=== PATIENT | male | born 1940 | race Caucasian/White ===

== ENCOUNTER 2017-03-23 08:39 | Day surgery (SDC) | payer MEDICARE, OTHER ==
--- NOTE | 2017-03-20 08:12 | HP ---
DATE OF SURGERY: 03/21/2017 ADMISSION DIAGNOSIS: The patient has difficulty swallowing. He is due for colonoscopic examination. He is also requiring a follow up re-evaluation bronchoscopy with a slightly worsening CT scan. ANTICIPATED PROCEDURES: Flexible bronchoscopy, EGD, colonoscopy. HISTORY OF PRESENT ILLNESS: The patient presents due for a colonoscopic examination for follow up. He has had some recent dysphagia, some hemoptysis which is presumed to be hemoptysis not necessarily hematemesis. He has a left upper lobe abnormality which has slightly worsened. He presents for follow up and evaluation of all three things at this time. PAST MEDICAL HISTORY: ALLERGIES: NKDA. MEDICATIONS: Lasix, Eliquis, baby aspirin, potassium, Bumex, carvedilol. PAST SURGICAL HISTORY: Rotator cuff. Endovascular aneurysm 2014. SOCIAL HISTORY: Negative. FAMILY HISTORY: Negative. PHYSICAL EXAMINATION: VITAL SIGNS: Normal. CHEST: Clear. COR: Regular. ABDOMEN: Satisfactory. IMPRESSION: Follow up screening colonoscopy, dysphagia requiring EGD, possible hematemesis/hemoptysis, CT abnormality left upper lobe. PLAN: EGD, bronchoscopy.
[~2017-03-23 08:39] MED LIST: ATROPINE SULFATE 1MG IV ONE; BRIDION 200MG/2ML IV ONE; DIPRIVAN 200 MG/20 ML IV ONE; Decadron 4 MG INJ IV ONE; Ephedrine Sulfate 50 MG/ML IV ONE; Lactated Ringers 1,000 ML IV ONE; Lactated Ringers 1,000 ML IV SCH; Quelicin Fliptop 200 MG/10 ML IV ONE; ROBINUL IV ONE; SUBLIMAZE 100 MCG/2 ML IV ONE; Zemuron 100 MG/10 ML IV ONE; Zofran 4 MG/2 ML VIAL IV ONE
[2017-03-23] MEDS ORDERED: Lactated Ringers 1,000 ML IV ONE (10:45)
[2017-03-23 12:06] VITALS: O2SAT 94
[2017-03-23 12:22] VITALS: BP 148/77; PULSE 61
--- NOTE | 2017-03-25 09:07 | OP ---
SURGERY DATE/TIME: 03/23/2017 PREOPERATIVE DIAGNOSIS: 1) Lesion left lung requiring follow up bronchoscopic examination with some mild symptoms. 2) Upper abdominal epigastric pain. 3) Screening colonoscopy follow up for 3 polyps. POSTOPERATIVE DIAGNOSIS: PROCEDURES: 1) Flexible bronchoscopic examinations with washings and biopsy. 2) EGD with cold biopsy. 3) Colonoscopic examination with hot polypectomy x3 complete to cecum. SURGEON: Misael Calderon M.D. ANESTHESIA: General. COMPLICATIONS: None. CONDITION: Stable. INDICATION: The patient has above mentioned reasons. DESCRIPTION OF PROCEDURE: He was taken to surgery. General anesthetic. The bronchoscopic examination was performed first. The adapter was placed on the endotracheal tube. The endotracheal tube was located 1.5 inches above the mian. There was a large blob of mucous in the left main on the posterior wall. Pre-biopsy suctioning from the left side were taken. Subsequently post-biopsy suctioning to the left side was taken. The right side was normal. The right upper lobe trifurcation, right middle lobe bifurcation, basilar segments were normal on the right. The mucous was tracked down the left main and it went to the posterior medial basilar. On the posterior wall there was exposed broncholith which had eroded through the posterior wall and it was fairly solid, very irregular and clearly a broncholith. Anterior there was a large amount of mucous and there was 1.5 cm long piece of material could be granulation tissue on the anterior surface. The other basilar were satisfactory. The upper lobe and lingula were satisfactory. Biopsy was taken and this basically took this whole piece of material about 1.5 cm long, 1.5 mm wide, very pink. It did have some texture to it. There was just a minimal amount of bleeding from its base. The field was irrigated. The bronchus was opened. Post-biopsy irrigation was performed and sent separately as post-biopsy washing. The gastroscope was then placed. A small hiatal hernia grade I/II gastroesophageal reflux disease. Receptionist biopsy of the antrum for Helicobacter pylori. Duodenal bulb and second portion satisfactory. The scope withdrawn. No additional lesions noted. Anal digital examination satisfactory. Scope introduced. The scope was fairly tedious. The patient had previous open prostatectomy. He had some fairly general robust nature, varying number of curves and angles. With care and patience the base of the cecum was reached. Ileocecal and appendiceal orifice was normal. Three polyps were taken on withdrawal all with hot biopsy forceps all with freight representative samples submitted. The patient tolerated the procedure satisfactory. Findings and pictures were initially shown to him.
--- NOTE | 2017-03-25 09:09 | OP ---
SURGERY DATE/TIME: 03/23/2017 1006 PREOPERATIVE DIAGNOSES: 1) Lesion left lung requiring follow up bronchoscopic examination with some mild symptoms. 2) Upper abdominal epigastric pain. 3) Screening colonoscopy follow up for 3 polyps. POSTOPERATIVE DIAGNOSES: 1) Lesion left lung requiring follow up bronchoscopic examination with some mild symptoms. 2) Upper abdominal epigastric pain. 3) Screening colonoscopy follow up for 3 polyps. PROCEDURES: 1) Flexible bronchoscopic examinations with washings and biopsy. 2) EGD with cold biopsy. 3) Colonoscopic examination with hot polypectomy x3 complete to cecum. SURGEON: Misael Calderon M.D. ANESTHESIA: General. COMPLICATIONS: None. CONDITION: Stable. INDICATION: The patient has above mentioned reasons. DESCRIPTION OF PROCEDURE: He was taken to surgery. General anesthetic. The bronchoscopic examination was performed first. The adapter was placed on the endotracheal tube. The endotracheal tube was located 1.5 inches above the mian. There was a large blob of mucous in the left main on the posterior wall. Pre-biopsy suctioning from the left side were taken. Subsequently post-biopsy suctioning to the left side was taken. The right side was normal. The right upper lobe trifurcation, right middle lobe bifurcation, basilar segments were normal on the right. The mucous was tracked down the left main and it went to the posterior medial basilar. On the posterior wall there was exposed broncholith which had eroded through the posterior wall and it was fairly solid, very irregular and clearly a broncholith. Anterior there was a large amount of mucous and there was 1.5 cm long piece of material could be granulation tissue on the anterior surface. The other basilar were satisfactory. The upper lobe and lingula were satisfactory. Biopsy was taken and this basically took this whole piece of material about 1.5 cm long, 1.5 mm wide, very pink. It did have some texture to it. There was just a minimal amount of bleeding from its base. The field was irrigated. The bronchus was opened. Post-biopsy irrigation was performed and sent separately as post-biopsy washing. The gastroscope was then placed. A small hiatal hernia grade I/II gastroesophageal reflux disease. Side Boss biopsy of the antrum for Helicobacter pylori. Duodenal bulb and second portion satisfactory. The scope withdrawn. No additional lesions noted. Anal digital examination satisfactory. Scope introduced. The scope was fairly tedious. The patient had previous open prostatectomy. He had some fairly general robust nature, varying number of curves and angles. With care and patience the base of the cecum was reached. Ileocecal and appendiceal orifice was normal. Three polyps were taken on withdrawal all with hot biopsy forceps all with entry level marketing representative samples submitted. The patient tolerated the procedure satisfactory. Findings and pictures were initially shown to him.
== END 2017-03-23 12:42 | disposition home or self-care (01) ==
LOC: SDC 08:39
PROVIDERS: ATTEND Surgery
PROC: 0B9L8ZX Drainage of Left Lung, Via Natural or Artificial Opening Endoscopic, Diagnostic (ICD-10-PCS; principal; 2017-03-23)
PROC: 0DB68ZX Excision of Stomach, Via Natural or Artificial Opening Endoscopic, Diagnostic (ICD-10-PCS; 2017-03-23)
PROC: 0DBM8ZX Excision of Descending Colon, Via Natural or Artificial Opening Endoscopic, Diagnostic (ICD-10-PCS; 2017-03-23)
PROC: 0DBL8ZX Excision of Transverse Colon, Via Natural or Artificial Opening Endoscopic, Diagnostic (ICD-10-PCS; 2017-03-23)
PROC: 0DBH8ZX Excision of Cecum, Via Natural or Artificial Opening Endoscopic, Diagnostic (ICD-10-PCS; 2017-03-23)
DX: R91.1 Solitary pulmonary nodule (principal); R10.13 Epigastric pain; Z12.11 Encounter for screening for malignant neoplasm of colon; R13.10 Dysphagia, unspecified; Z86.010 Personal history of colon polyps; K21.9 Gastro-esophageal reflux disease without esophagitis; Z79.899 Other long term (current) drug therapy
CPT/HCPCS: 00520; 00740; 00810; 36415; 87070; 99100; J0330; J0461; J1100; J2405; J2704; J3010

== ENCOUNTER 2020-11-14 09:30 | Emergency (ER) | payer MEDICARE, OTHER ==
--- NOTE | 2020-11-14 09:56 | ERPHSYRPT ---
- History of Present Illness Source: patient Patient Subjective Stated Complaint: Pt stated that he fell Saturday outside and injured his left shoulder and fell again outside on Saturday and injured his right shoulder Triage Nursing Assessment: Pt was brought to the ER by his , hx of left shoulder surgery, right shoulder more painful than left, hit head but denies losing consciousness, pt is on blood thinners, denies any other injuries, pulses normal, skin n/w/d Physician History: 80 yo wm fell on ice on 11/11/20 and 11/12/20 injuring B shoulders and hitting his head. He denies LOC but is on Eliquis. Pain is rated 2-3/10 in shoulders and worse w movement. He is R handed. Occurred: other (3 and 2 days ago) Reason for Fall: slipped (Ice) Injuries/Pain Location: upper extremity (B shoulders/Head) Loss of Consciousness: no loss of consciousness Quality: aching Severity of Pain-Max: mild Severity of Pain-Current: mild Modifying Factors: Improves With: movement (Worse w movement) Associated Symptoms (Fall): extremity injury, No abdominal pain, No back pain, No confusion, No chest pain, No dizziness, No headache, No lightheadedness, No muscle spasms, No nausea, No neck pain, No ringing in ears, No seizures, No shortness of breath, No slurred speech, No trouble walking, No vomiting, No vision changes Allergies/Adverse Reactions: No Known Drug Allergies Allergy (Verified 11/14/20 09:42) Home Medications: Nitroglycerin 0.4 mg SL UD PRN 09/17/12 [History] Rosuvastatin Calcium [Crestor] 20 mg PO DAILY 09/17/12 [History] Alprazolam 0.5 mg [xanAX 0.5 MG] 0.5 mg PO HS 01/13/13 [History] Temazepam [Restoril] 30 mg PO HS 01/13/13 [History] Bumetanide 1 mg [Bumex 1 mg] 1 mg PO DAILY PRN PRN 08/24/15 [History] Carvedilol 6.25 mg [Coreg 6.25 MG] 12.5 mg PO BID 08/24/15 [History] Albuterol 2.5 mg/3 ml Neb [Proventil 2.5 mg/3 ml Neb] 2.5 mg IH Q4-6HPRN PRN 03/20/17 [History] Apixaban [Eliquis] 5 mg PO BID 03/20/17 [History] Budesonide/Formoterol Fumarate [Symbicort 160-4.5 Mcg Inhaler] 6 gm IH DAILY 03/20/17 [History] Lisinopril 20 mg [Zestril 20 MG] 5 mg PO DAILY 03/20/17 [History] Potassium Chloride 20 Meq [Klor-Con 20 MEQ] 20 meq PO DAILY 03/20/17 [History] Amlodipine Besylate 5 mg [Norvasc 5 mg] 5 mg PO DAILY 11/14/20 [History] Isosorbide Mononitrate [Isosorbide Mononitrate ER] 60 mg PO DAILY 11/14/20 [History] Hx Influenza Vaccination/Date Given: Yes (2011) Hx Pneumococcal Vaccination/Date Given: Yes (2009) Travel Risk - International Travel Have you traveled outside of the country in past 3 weeks: No - Coronavirus Screening Are you exhibiting any of the following symptoms?: No Close contact with a COVID-19 positive Pt in past 14-21 Days: No - Review of Systems Constitutional: No Symptoms Eyes: No Symptoms Ears, Nose, & Throat: No Symptoms Respiratory: No Symptoms Cardiac: No Symptoms Abdominal/Gastrointestinal: No Symptoms Genitourinary Symptoms: No Symptoms Musculoskeletal: Joint Pain (B shoulders) Skin: No Symptoms Neurological: No Symptoms Psychological: No Symptoms Endocrine: No Symptoms Hematologic/Lymphatic: No Symptoms Immunological/Allergic: No Symptoms - Past Medical History Pertinent Past Medical History: Yes Neurological History: No Pertinent History ENT History: Cataracts Cardiac History: Aneurysm, Coronary Artery Disease, High Cholesterol, Hypertension Respiratory History: COPD, Emphysema, Sleep Apnea Endocrine Medical History: No Pertinent History Musculoskeletal History: No Pertinent History GI Medical History: Diverticulitis, Diverticulosis History: No Pertinent History Psycho-Social History: Anxiety Male Reproductive Disorders: Prostate Cancer Other Medical History: aortic aneurysm in November 2012, pacemaker - Past Surgical History Past Surgical History: Yes Neuro Surgical History: No Pertinent History Cardiac: CABG, Cardiac Catheterization, Cardiac Stent, Pacemaker Respiratory: No Pertinent History Gastrointestinal: Hernia Repair Genitourinary: No Pertinent History Musculoskeletal: Orthopedic Surgery Male Surgical History: Prostate Surgery, Vasectomy Other Surgical History: left shoulder reconstructioncyst from tail bone and neck, cyst removed from neck, colonoscopy - Social History Smoking Status: Former smoker How long have you smoked: 40yrs Exposure to second hand smoke: No Drug Use: none Patient Lives Alone: No - Nursing Vital Signs Nursing Vital Signs: Initial Vital Signs Temperature 97.5 F 11/14/20 09:34 Pulse Rate 60 11/14/20 09:34 Blood Pressure 169/81 11/14/20 09:34 O2 Sat by Pulse Oximetry 97 11/14/20 09:34 Pain Scale Pain Intensity 5 - Enrique Coma Score Best Eye Response ([place]): (4) open spontaneously Best Verbal Response ([place]): (5) oriented Best Motor Response (Enrique): (6) obeys commands Enrique Total: 15 - Physical Exam General Appearance: no apparent distress Head Injury: swelling (Possible small area of edema on occiput/Minimal TTP) ENT Exam: airway nml, decreased hearing, 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 ) Neck Exam: supple, trachea midline (C-spine nttp) Respiratory/Chest Exam: rales (Faint dry rales at bases B), No chest tenderness, No respiratory distress Cardiovascular Exam: regular rate/rhythm, murmur (3/6 NIECY) Gastrointestinal Exam: soft, normal bowel sounds, No tenderness Back Exam: normal inspection, normal range of motion, No CVA tenderness, No vertebral tenderness Extremity Exam: other (Diffuse TTP B shoulders/Pain w abduction of R shoulder>L shoulder/Good B radial pulse and distal sensation) Peripheral Pulses: carotid (R): 2+, carotid (L): 2+ Neurologic Exam: alert, oriented x 3, cooperative, 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, normal mood/affect, sensation nml, No motor deficits, No sensory deficit Skin Exam: normal color, warm, dry, No rash SpO2 Interpretation: normal SpO2: 97 O2 Delivery: Room Air - Radiology Exams Shoulder X-ray Interpretation: Reviewed by me (B shoulders neg per Rad) - CT Exams Head CT Interpretation: Discussed w/radiologist (Nothing acute/Opacification of L mastoid air cells) Ordered Tests: Active Orders 24 hr Category Date Time Status HEAD WITHOUT CONTRAST [CT] Stat Exams 11/14/20 09:53 Completed SHOULDER Routine Exams 11/14/20 10:04 Completed SHOULDER Stat Exams 11/14/20 09:57 Taken - Progress Progress Note: 11/14/20 11:17 Pt refuses any pain meds, even Rx Counseled pt/family regarding: rad results - Departure Departure Disposition: Home Clinical Impression: Shoulder contusion, Contusion of head Condition: Stable Critical Care Time: No Referrals: ABBEY MARS MD [Primary Care Provider] - Instructions: Minor Head Injury (DC), Shoulder Sprain (DC) Additional Instructions: Motrin/Tylenol for pain Follow up with your family MD Return to ER for increasing pain Activity as tolerated
--- NOTE | 2020-11-14 10:37 | XRAY ---
Indication: Pain following fall. Comparison: None 3 view left shoulder demonstrates osteopenia, mild shoulder degenerative arthropathy, and partially visualized pacemaker. No other bony, articular, or soft tissue abnormalities.
--- NOTE | 2020-11-14 11:05 | XRAY ---
Indication: Head injury following fall 2 days ago. Multiple contiguous axial images obtained through the head without contrast. Comparison: None. Age-appropriate global atrophy, mild periventricular degenerative micro-ischemia bilaterally, and small right external capsule lacunar infarct. No acute intracranial hemorrhage, abnormal extra-axial fluid collection, or mass effect. Fourth ventricle is midline without hydrocephalus. Bony calvarium intact. There are centimeter/subcentimeter right maxillary sinus polyps/retention cysts. Near complete opacification of left mastoid air cells presumed inflammatory. Impression: 1. Atrophy, degenerative micro-ischemia, and remote right external capsule lacunar infarct. 2. No acute intracranial abnormalities. 3. Opacification left mastoid air cells presumed inflammatory. 4. Incidental right maxillary sinus polyps/retention cysts.
[2020-11-14 11:12] VITALS: BP 143/72; PULSE 60
[2020-11-14 11:21] VITALS: O2SAT 97
--- NOTE | 2020-11-16 08:42 | XRAY ---
Indication: Pain following fall. Comparison: None 3 view right shoulder demonstrates osteopenia, mild AC degenerative arthropathy, and partially visualized cardiac pacer leads. No other bony, articular, or soft tissue abnormalities.
== END 2020-11-14 11:25 | disposition home or self-care (01) ==
LOC: ED 09:30
DX: M25.512 Pain in left shoulder (principal); M25.511 Pain in right shoulder; S00.93XA Contusion of unspecified part of head, initial encounter; S40.012A Contusion of left shoulder, initial encounter; S40.011A Contusion of right shoulder, initial encounter; R60.0 Localized edema; E78.5 Hyperlipidemia, unspecified; I10 Essential (primary) hypertension; I25.10 Atherosclerotic heart disease of native coronary artery without angina pectoris; W00.9XXA Unspecified fall due to ice and snow, initial encounter; Z79.01 Long term (current) use of anticoagulants
CPT/HCPCS: 70450; 73030; 99284

== ENCOUNTER 2021-06-12 06:09 | Observation (INO) | payer MEDICARE, OTHER ==
[2021-06-12] MEDS ORDERED: Zofran 4 MG/2 ML VIAL IV ONE ×2 (06:36→10:03)
[2021-06-12] MEDS ORDERED: MORPHINE SULFATE 2 MG INJ IV ONE ×2 (06:36→10:02)
[2021-06-12] MEDS ORDERED: Sodium Chloride 0.9% 500 ML 500 ML IV ONE ×2 (06:37→06:41)
[2021-06-12] MEDS ORDERED: MORPHINE SULFATE 2 MG INJ ONE (06:41)
[2021-06-12] MEDS ORDERED: Zofran 4 MG/2 ML VIAL ONE (06:41)
[2021-06-12 06:53] LABS: Absolute Neutrophil Ct (ANC) 5.87 (1.4-6.9); BASOPHIL % 0.3 % (0.0-0.4); Basophil (Absolute #) 0.02 (0-0.4); Eosinophil % 1.3 % (0.00-5.0); Hematocrit 37.8 % (42-50); Hemoglobin 11.9 gm/dl (12.5-18.0); Lymphocyte (Absolute #) 0.93 (1.0-4.6); Mean Corpuscular Hemoglobin 29.6 pg (26-32); Mean Corpuscular Hgb Concent. 31.5 g/dl (32-36); Mean Platelet Volume 10.8 fl (7.5-11.0); Monocyte (Absolute #) 0.86 (0.0-1.3); Monocytes % 11.1 % (0.0-12.0); Neutrophil % 75.3 % (36.0-66.0); Platelet Count 114 K/mm3 (150-450); Red Blood Count 4.02 M/mm3 (4.1-5.6); Red Cell Distribution Width 15.3 % (11.5-14.0); White Blood Count 7.8 K/mm3 (4.0-10.5)
--- NOTE | 2021-06-12 07:00 | ERPHSYRPT ---
<PERKAREN - Last Filed: 06/12/21 10:20> - History of Present Illness Historian: patient Exam Limitations: no limitations Patient Subjective Stated Complaint: pt states he has been having intermittent abd pain since saturday. states on saturday he was nauseated and vomnited. pain got better, and he woke up at approx 0400 with increased abd pain. Triage Nursing Assessment: pt alert and oreinted, answers questions approp. pt ambulatory with steady gait noted. respirations nonlabored. skin warm and dry. abd soft, tenderness noted to rt abd. bowel sounds hypo. Timing/Duration: day(s) (2), intermittent, gradual onset, worse Activities at Onset: sleep Quality: dullness, sharpness Abdominal Pain Onset Location: epigastric, periumbilical Pain Radiation: no radiation Severity of Pain-Max: moderate Severity of Pain-Current: moderate Modifying Factors: Improves With: rest. Worsens With: movement, palpation Associated Symptoms: nausea, vomiting, No chest pain, No fever/chills, No loss of appetite, No shortness of breath Previous symptoms: no prior history Hx Tetanus, Diphtheria Vaccination/Date Given: Yes Hx Influenza Vaccination/Date Given: No Hx Pneumococcal Vaccination/Date Given: Yes Immunizations Up to Date: Yes <ANTONINA BELLO - Last Filed: 06/15/21 07:55> - History of Present Illness Time Seen by Provider: 06/12/21 06:36 Physician History: 80 years old male with history of coronary artery disease status post CABG, on Eliquis, hypertension, hyperlipidemia presented in the ER with 2 days history of upper abdominal/periumbilical area intermittent moderate to severe intensity, sharp or dull nature with associated nausea and one episode of vomiting. Pain is aggravated with movements/activity and better with resting. Earlier he woke up with a severe pain and decided to come to ER. No vomiting today. Since no radiation of pain to the chest or any associated palpitations/shortness of breath. (ANTONINA BELLO) Allergies/Adverse Reactions: No Known Drug Allergies Allergy (Verified 06/12/21 06:28) Home Medications: Nitroglycerin 0.4 mg SL UD PRN 09/17/12 [History] Rosuvastatin Calcium [Crestor] 20 mg PO DAILY 09/17/12 [History] ALPRAZolam 0.5 MG [xanAX 0.5 MG] 0.5 mg PO HS 01/13/13 [History] Temazepam [Restoril] 30 mg PO HS 01/13/13 [History] Bumetanide 1 mg [Bumex 1 mg] 1 mg PO DAILY PRN PRN 08/24/15 [History] Carvedilol 6.25 mg [Coreg 6.25 MG] 12.5 mg PO BID 08/24/15 [History] Albuterol 2.5 mg/3 ml Neb [Proventil 2.5 mg/3 ml Neb] 2.5 mg IH Q4-6HPRN PRN 03/20/17 [History] Apixaban [Eliquis] 5 mg PO BID 03/20/17 [History] Budesonide/Formoterol Fumarate [Symbicort 160-4.5 Mcg Inhaler] 6 gm IH DAILY 03/20/17 [History] Lisinopril 20 mg [Zestril 20 MG] 5 mg PO DAILY 03/20/17 [History] Potassium Chloride 20 Meq [Klor-Con 20 MEQ] 20 meq PO DAILY PRN PRN 03/20/17 [History] Amiodarone HCl 200 mg [Cordarone 200 MG] 200 mg PO DAILY 06/12/21 [History] Amlodipine Besylate 5 mg [Norvasc 5 mg] 5 mg PO DAILY 06/12/21 [History] Isosorbide Mononitrate 60 mg [Imdur 60MG] 60 mg PO DAILY 06/12/21 [History] Travel Risk - International Travel Have you traveled outside of the country in past 3 weeks: No - Coronavirus Screening Are you exhibiting any of the following symptoms?: No Close contact with a COVID-19 positive Pt in past 14-21 Days: No - Vaccine Status Have you recieved a Covid-19 vaccination: No <ANTONINA BELLO - Last Filed: 06/15/21 07:55> - Review of Systems Constitutional: No Symptoms Eyes: No Symptoms Ears, Nose, & Throat: No Symptoms Respiratory: No Symptoms Cardiac: No Symptoms Abdominal/Gastrointestinal: Abdominal Pain, Nausea, Vomiting Genitourinary Symptoms: No Symptoms Musculoskeletal: No Symptoms Skin: No Symptoms Neurological: No Symptoms Psychological: No Symptoms Hematologic/Lymphatic: No Symptoms Immunological/Allergic: No Symptoms <ACEANTONINA Last Filed: 06/15/21 07:55> - Past Medical History Pertinent Past Medical History: Yes Neurological History: No Pertinent History ENT History: Cataracts Cardiac History: High Cholesterol, Hypertension, Myocardial Infarction ([place]) Respiratory History: COPD, Pneumonia, Other Endocrine Medical History: No Pertinent History Musculoskeletal History: No Pertinent History GI Medical History: Diverticulitis, Diverticulosis History: No Pertinent History Psycho-Social History: Anxiety Male Reproductive Disorders: Prostate Cancer Other Medical History: COVID-17 september 2020, , CABG (10-12 years) - Past Surgical History Past Surgical History: Yes Neuro Surgical History: No Pertinent History Cardiac: CABG, Cardiac Catheterization, Cardiac Stent, Pacemaker Respiratory: No Pertinent History Gastrointestinal: Hernia Repair Genitourinary: No Pertinent History Musculoskeletal: Orthopedic Surgery Male Surgical History: Prostate Surgery, Vasectomy Other Surgical History: left shoulder reconstructioncyst from tail bone and neck, cyst removed from neck, colonoscopy - Social History Smoking Status: Former smoker How long have you smoked: 40yrs Exposure to second hand smoke: No Drug Use: none Patient Lives Alone: No <ANTONINA BELLO Jacy Last Filed: 06/15/21 07:55> - Physical Exam General Appearance: no apparent distress, alert Eye Exam: PERRL/EOMI Ears, Nose, Throat Exam: normal ENT inspection, pharynx normal Neck Exam: normal inspection, non-tender, full range of motion Respiratory Exam: normal breath sounds, lungs clear Cardiovascular Exam: regular rate/rhythm, normal heart sounds Gastrointestinal/Abdomen Exam: soft, tenderness, guarding (Epigastric/periumbilical area with no rebound tenderness) Back Exam: normal inspection, normal range of motion Extremity Exam: normal inspection, normal range of motion Neurologic Exam: alert, oriented x 3, cooperative Skin Exam: normal color SpO2 Interpretation: normal SpO2: 99 O2 Delivery: Room Air <ACEANTONINA - Last Filed: 06/15/21 07:55> - Nursing Vital Signs Nursing Vital Signs: Initial Vital Signs Temperature 97.2 F 06/12/21 06:15 Pulse Rate 60 06/12/21 06:15 Respiratory Rate 16 06/12/21 06:15 Blood Pressure 168/83 06/12/21 06:15 O2 Sat by Pulse Oximetry 99 06/12/21 06:15 Pain Scale Pain Intensity 7 Ordered Tests: Medication Summary Discontinued Medications Generic Name Dose Route Start Last Admin Trade Name Freq PRN Reason Stop Dose Admin Hydrocodone Bitart/Acetaminophen 1 tab 06/12/21 19:00 06/12/21 20:30 [place] 5/325 Mg PO 06/17/21 18:59 1 tab Q4H PRN PRN Administration PAIN Albuterol Sulfate 2.5 mg 06/12/21 17:22 Proventil 2.5 Mg/3 Ml Neb IH 07/12/21 17:21 Q4H PRN PRN SHORTNESS OF BREATH Albuterol Sulfate 4 puff 06/12/21 17:38 06/12/21 17:45 Ventolin Common Canister IH 07/12/21 17:37 4 puff Q4H PRN PRN Administration SHORTNESS OF BREATH/WHEEZING Albuterol/Ipratropium 3 ml 06/12/21 15:36 Duoneb 0.5-3 Mg/3 Ml Neb IH 07/12/21 15:35 Q4HPRN PRN SHORTNESS OF BREATH/WHEEZING Alprazolam 0.5 mg 06/12/21 22:00 06/12/21 21:33 Xanax 0.5 Mg PO 07/12/21 21:59 0.5 mg HS SAMUEL Administration Amiodarone HCl 200 mg 06/12/21 18:00 06/13/21 11:39 Cordarone 200 Mg PO 07/12/21 17:59 200 mg DAILY SAMUEL Administration Amlodipine Besylate 5 mg 06/12/21 18:00 06/13/21 11:39 Norvasc 5 Mg PO 07/12/21 17:59 5 mg DAILY SAMUEL Administration Apixaban 5 mg 06/12/21 22:00 06/13/21 11:39 Eliquis 2.5 Mg Tablet PO 07/12/21 21:59 5 mg BID SAMUEL Administration Carvedilol 12.5 mg 06/12/21 22:00 06/13/21 11:39 Coreg 12.5 Mg PO 07/12/21 21:59 12.5 mg BID SAMUEL Administration Glycerin 1 supp.rect 06/13/21 11:21 06/13/21 11:39 Glycerin Adult Suppository RC 06/13/21 11:22 1 supp.rect STAT ONE Administration Sodium Chloride 500 mls @ 500 mls/hr 06/12/21 06:37 06/12/21 11:23 Sodium Chloride 0.9% 500 Ml IV 06/12/21 07:36 Infused .Q1H ONE Infusion Sodium Chloride Confirm 06/12/21 06:41 Sodium Chloride 0.9% 500 Ml Administered 06/12/21 06:42 Dose 500 mls @ ud IV .STK-MED ONE Piperacillin Sod/Tazobactam 100 mls @ 200 mls/hr 06/12/21 10:03 06/12/21 16:29 Sod 3.375 gm/ Sodium Chloride IV 06/12/21 10:32 Not Given STAT ONE Sodium Chloride 1,000 mls @ 100 mls/hr 06/12/21 10:30 06/12/21 23:18 Sodium Chloride 0.9% 1000 Ml IV 07/12/21 10:29 100 mls/hr .Q10H SAMUEL Administration Piperacillin Sod/Tazobactam 100 mls @ 200 mls/hr 06/12/21 18:00 06/13/21 11:38 Sod 3.375 gm/ Sodium Chloride IV 06/15/21 17:59 200 mls/hr Q6HT SAMUEL Administration Isosorbide Mononitrate 60 mg 06/12/21 18:00 06/13/21 11:39 Imdur 60mg PO 07/12/21 17:59 60 mg DAILY SAMUEL Administration Lisinopril 10 mg 06/13/21 10:00 Zestril 10 Mg PO 07/13/21 09:59 DAILY SAMUEL Lisinopril 5 mg 06/12/21 18:00 06/13/21 11:39 Zestril 5 Mg PO 07/12/21 17:59 5 mg DAILY SAMUEL Administration Morphine Sulfate 2 mg 06/12/21 06:36 06/12/21 06:44 Morphine Sulfate 2 Mg Inj IV 06/12/21 06:37 2 mg STAT ONE Administration Morphine Sulfate Confirm 06/12/21 06:41 Morphine Sulfate 2 Mg Inj Administered 06/12/21 06:42 Dose 2 mg .ROUTE .STK-MED ONE Morphine Sulfate 2 mg 06/12/21 10:02 06/12/21 16:28 Morphine Sulfate 2 Mg Inj IV 06/12/21 10:03 Not Given STAT ONE Morphine Sulfate 2 mg 06/12/21 10:21 Morphine Sulfate 2 Mg Inj IV 06/17/21 10:20 Q4H PRN PRN PAIN Morphine Sulfate 4 mg 06/12/21 15:31 06/12/21 16:18 Morphine Sulfate 2 Mg Inj IV 06/17/21 10:20 4 mg Q4H PRN PRN Administration PAIN Nitroglycerin 0.4 mg 06/12/21 17:22 Nitrostat 0.4 Mg Tablet SL 07/12/21 17:21 UD PRN CHEST PAIN Ondansetron HCl 4 mg 06/12/21 06:36 06/12/21 06:44 Zofran 4 Mg/2 Ml Vial IV 06/12/21 06:37 4 mg STAT ONE Administration Ondansetron HCl Confirm 06/12/21 06:41 Zofran 4 Mg/2 Ml Vial Administered 06/12/21 06:42 Dose 4 mg .ROUTE .STK-MED ONE Ondansetron HCl 4 mg 06/12/21 10:03 06/12/21 16:28 Zofran 4 Mg/2 Ml Vial IV 06/12/21 10:04 Not Given STAT ONE Ondansetron HCl 4 mg 06/12/21 10:21 06/12/21 16:27 Zofran 4 Mg/2 Ml Vial IV 07/12/21 10:20 4 mg Q6H PRN PRN Administration NAUSEA/VOMITING Pantoprazole Sodium 40 mg 06/12/21 15:00 06/13/21 11:39 Protonix 40 Mg Iv IV 07/12/21 14:59 40 mg Q24H10 SAMUEL Administration Fluticasone/Salmeterol 2 puff 06/12/21 19:00 06/13/21 07:41 Advair Hfa 115/21 Common Canister* IH 07/12/21 18:59 2 puff BIDRT SAMUEL Administration Simvastatin 40 mg 06/12/21 18:00 09/14/21 11:38 Zocor 20mg PO 07/12/21 17:59 40 mg DAILY SAMUEL Administration Temazepam 30 mg 06/12/21 22:00 06/12/21 21:33 Restoril 15 Mg PO 07/12/21 21:59 30 mg HS SAMUEL Administration Lab/Rad Data: Laboratory Result Diagrams 06/12/21 06:20 06/12/21 06:20 Laboratory Results 06/12/21 06/12/21 06/12/21 Range/Units 12:50 10:48 09:40 WBC (4.0-10.5) K/mm3 RBC (4.1-5.6) M/mm3 Hgb (12.5-18.0) gm/dl Hct (42-50) % MCV (78-100) fl MCH (26-32) pg MCHC (32-36) g/dl RDW (11.5-14.0) % Plt Count (150-450) K/mm3 MPV (7.5-11.0) fl Gran % (36.0-66.0) % Eos # (Auto) (0-0.5) Absolute Lymphs (auto) (1.0-4.6) Absolute Monos (auto) (0.0-1.3) Lymphocytes % (24.0-44.0) % Monocytes % (0.0-12.0) % Eosinophils % (0.00-5.0) % Basophils % (0.0-0.4) % Absolute Granulocytes (1.4-6.9) Basophils # (0-0.4) Sodium (137-145) mmol/L Potassium (3.5-5.1) mmol/L Chloride (98-107) mmol/L Carbon Dioxide (22-30) mmol/L Anion Gap (5-15) MEQ/L BUN (9-20) mg/dL Creatinine (0.66-1.25) mg/dL Estimated GFR ML/MIN Glucose (74-106) mg/dL Calcium (8.4-10.2) mg/dL Total Bilirubin (0.2-1.3) mg/dL AST (17-59) U/L ALT (0-50) U/L Alkaline Phosphatase (38-126) U/L Troponin I < 0.012 < 0.012 (0.000-0.034) ng/mL Serum Total Protein (6.3-8.2) g/dL Albumin (3.5-5.0) g/dL Amylase (30-110) U/L Lipase (23-300) U/L Urine Color (YELLOW) Urine Appearance (CLEAR) Urine pH (5-6) Ur Specific Brethren (1.005-1.025) Urine Protein (Negative) Urine Ketones (NEGATIVE) Urine Blood (0-5) Sheng/ul Urine Nitrite (NEGATIVE) Urine Bilirubin (NEGATIVE) Urine Urobilinogen (0-1) mg/dL Ur Leukocyte Esterase (NEGATIVE) Urine WBC (Auto) (0-5) /HPF Urine RBC (Auto) (0-2) /HPF U Hyaline Cast (Auto) (0-2) /LPF U Epithel Cells (Auto) (FEW) /HPF Urine Bacteria (Auto) (NEGATIVE) /HPF Urine Mucus (Auto) (NEGATIVE) /HPF Urine Culture Reflexed (NO) Urine Glucose (NEGATIVE) mg/dL SARS-CoV-2 (PCR) NEGATIVE (NEGATIVE) 06/12/21 06/12/21 06/12/21 Range/Units 08:26 06:45 06:20 WBC (4.0-10.5) K/mm3 RBC (4.1-5.6) M/mm3 Hgb (12.5-18.0) gm/dl Hct (42-50) % MCV (78-100) fl MCH (26-32) pg MCHC (32-36) g/dl RDW (11.5-14.0) % Plt Count (150-450) K/mm3 MPV (7.5-11.0) fl Gran % (36.0-66.0) % Eos # (Auto) (0-0.5) Absolute Lymphs (auto) (1.0-4.6) Absolute Monos (auto) (0.0-1.3) Lymphocytes % (24.0-44.0) % Monocytes % (0.0-12.0) % Eosinophils % (0.00-5.0) % Basophils % (0.0-0.4) % Absolute Granulocytes (1.4-6.9) Basophils # (0-0.4) Sodium 138 (137-145) mmol/L Potassium 3.5 (3.5-5.1) mmol/L Chloride 100 (98-107) mmol/L Carbon Dioxide 27 (22-30) mmol/L Anion Gap 14.4 (5-15) MEQ/L BUN 25 H (9-20) mg/dL Creatinine 1.15 (0.66-1.25) mg/dL Estimated GFR > 60.0 ML/MIN Glucose 117 H (74-106) mg/dL Calcium 9.0 (8.4-10.2) mg/dL Total Bilirubin 0.80 (0.2-1.3) mg/dL AST 28 (17-59) U/L ALT 19 (0-50) U/L Alkaline Phosphatase 65 (38-126) U/L Troponin I < 0.012 (0.000-0.034) ng/mL Serum Total Protein 7.3 (6.3-8.2) g/dL Albumin 4.2 (3.5-5.0) g/dL Amylase 92 (30-110) U/L Lipase 32 (23-300) U/L Urine Color YELLOW (YELLOW) Urine Appearance CLEAR (CLEAR) Urine pH 5.0 (5-6) Ur Specific [place] 1.031 (1.005-1.025) Urine Protein NEGATIVE (Negative) Urine Ketones NEGATIVE (NEGATIVE) Urine Blood NEGATIVE (0-5) Sheng/ul Urine Nitrite NEGATIVE (NEGATIVE) Urine Bilirubin NEGATIVE (NEGATIVE) Urine Urobilinogen 2 (0-1) mg/dL Ur Leukocyte Esterase NEGATIVE (NEGATIVE) Urine WBC (Auto) 0-2 (0-5) /HPF Urine RBC (Auto) 0-2 (0-2) /HPF U Hyaline Cast (Auto) 0-2 (0-2) /LPF U Epithel Cells (Auto) FEW (FEW) /HPF Urine Bacteria (Auto) FEW (NEGATIVE) /HPF Urine Mucus (Auto) SLIGHT (NEGATIVE) /HPF Urine Culture Reflexed NO (NO) Urine Glucose NEGATIVE (NEGATIVE) mg/dL SARS-CoV-2 (PCR) (NEGATIVE) 06/12/21 Range/Units 06:20 WBC 7.8 (4.0-10.5) K/mm3 RBC 4.02 L (4.1-5.6) M/mm3 Hgb 11.9 L (12.5-18.0) gm/dl Hct 37.8 L (42-50) % MCV 94.0 (78-100) fl MCH 29.6 (26-32) pg MCHC 31.5 L (32-36) g/dl RDW 15.3 H (11.5-14.0) % Plt Count 114 L (150-450) K/mm3 MPV 10.8 (7.5-11.0) fl Gran % 75.3 H (36.0-66.0) % Eos # (Auto) 0.10 (0-0.5) Absolute Lymphs (auto) 0.93 L (1.0-4.6) Absolute Monos (auto) 0.86 (0.0-1.3) Lymphocytes % 12.0 L (24.0-44.0) % Monocytes % 11.1 (0.0-12.0) % Eosinophils % 1.3 (0.00-5.0) % Basophils % 0.3 (0.0-0.4) % Absolute Granulocytes 5.87 (1.4-6.9) Basophils # 0.02 (0-0.4) Sodium (137-145) mmol/L Potassium (3.5-5.1) mmol/L Chloride (98-107) mmol/L Carbon Dioxide (22-30) mmol/L Anion Gap (5-15) MEQ/L BUN (9-20) mg/dL Creatinine (0.66-1.25) mg/dL Estimated GFR ML/MIN Glucose (74-106) mg/dL Calcium (8.4-10.2) mg/dL Total Bilirubin (0.2-1.3) mg/dL AST (17-59) U/L ALT (0-50) U/L Alkaline Phosphatase (38-126) U/L Troponin I (0.000-0.034) ng/mL Serum Total Protein (6.3-8.2) g/dL Albumin (3.5-5.0) g/dL Amylase (30-110) U/L Lipase (23-300) U/L Urine Color (YELLOW) Urine Appearance (CLEAR) Urine pH (5-6) Ur Specific [place] (1.005-1.025) Urine Protein (Negative) Urine Ketones (NEGATIVE) Urine Blood (0-5) Sheng/ul Urine Nitrite (NEGATIVE) Urine Bilirubin (NEGATIVE) Urine Urobilinogen (0-1) mg/dL Ur Leukocyte Esterase (NEGATIVE) Urine WBC (Auto) (0-5) /HPF Urine RBC (Auto) (0-2) /HPF U Hyaline Cast (Auto) (0-2) /LPF U Epithel Cells (Auto) (FEW) /HPF Urine Bacteria (Auto) (NEGATIVE) /HPF Urine Mucus (Auto) (NEGATIVE) /HPF Urine Culture Reflexed (NO) Urine Glucose (NEGATIVE) mg/dL SARS-CoV-2 (PCR) (NEGATIVE) - Progress Counseled pt/family regarding: lab results, diagnosis, need for follow-up, rad results <KAREN ALBARADO - Last Filed: 06/12/21 10:20> - Progress Progress: unchanged <ANTONINA BELLO - Last Filed: 06/15/21 07:55> - Progress Progress Note: 06/12/21 07:29 Assumed care of pt at shift change w epigastric pain x 2 days. Pain 3/10 and improved after MSO4. It is sharp and worse w movement. He has had N/V wo hematemesis/melena/hematochezia/dysuria/hematuria/fever/chest pain/cough/coryza. He is not vaccinated. Alert and oriented x3 Lungs-faint rales at bases B Heart RRR w2/6 NIECY Abdomen-good BS/soft/epigastric TTP wo guarding or rebound No edema 06/12/21 10:00 Spoke w Higinio Calderon MD, wants to admit to PCP, start Zosyn, and see pt on floor. 06/12/21 10:[address] Gomez (KAREN ALBARADO) 06/12/21 06:58 Work-up is pending, care is transferred to Dr. Albarado at shift change (ANTONINA BELLO) - Departure Departure Disposition: Observation <KAREN ALBARADO - Last Filed: 06/12/21 10:20> - Departure Critical Care Time: No <ANTONINA BELLO - Last Filed: 06/15/21 07:55> - Departure Clinical Impression: Biliary colic Condition: Good
[2021-06-12 07:03] LABS: ALBUMIN 4.2 g/dL (3.5-5.0); ALKALINE PHOSPHATASE 65 U/L (38-126); AMYLASE 92 U/L (30-110); ANION GAP 14.4 MEQ/L (5-15); BLOOD UREA NITROGEN 25 mg/dL (9-20); CHLORIDE 100 mmol/L (98-107); Carbon Dioxide 27 mmol/L (22-30); Creatinine 1 1.15 mg/dL (0.66-1.25); EST GLOMERULAR FILTRATION RATE > 60.0 ML/MIN; Glucose 117 mg/dL (74-106); LIPASE 32 U/L (23-300); Potassium 3.5 mmol/L (3.5-5.1); SGOT/AST 28 U/L (17-59); SGPT/ALT 19 U/L (0-50); SODIUM 138 mmol/L (137-145); Total Protein 7.3 g/dL (6.3-8.2)
--- NOTE | 2021-06-12 08:45 | XRAY ---
Indication: Upper abdomen pain. Multiple contiguous axial images obtained through the abdomen and pelvis using 100 cc Isovue 370 contrast. Comparison: February 09, 2020. Lung bases again demonstrates bibasilar fibrosis/scarring and minimal right posterior gutter calcified pleural plaquing. No infiltrate or effusion. Heart is not enlarged. Noncontrasted stomach and bowel loops remain nonobstructed again with scattered descending and sigmoid diverticulosis. Gallbladder demonstrates normally distended without gallstones. New gallbladder wall thickening up to 6-7 mm with tiny pericholecystic fluid concerning for cholecystitis. No abnormal biliary distention. Stable hepatic cysts, calcified splenic granulomas, and prostatectomy. Remaining liver, pancreas, spleen, adrenal glands, kidneys, ureters, and bladder are unremarkable. Stable scattered vascular calcifications, distal AAA, and aortobiiliac stent graft. Osseous structures intact again with osteopenia, mild/moderate multilevel degenerative spondylosis, and mild bilateral hip degenerative arthropathy. Impression: 1. New gallbladder wall thickening and tiny pericholecystic fluid without gallstones. Rule out acalculous cholecystitis. 2. Again incidental colonic diverticulosis, hepatic cysts, AAA with aortoiliac stent graft, and chronic bony findings.
[2021-06-12 08:58] LABS: Appearance CLEAR (CLEAR); Bilirubin NEGATIVE (NEGATIVE); Blood NEGATIVE Ery/ul (0-5); Glucose NEGATIVE (NEGATIVE); Hyaline Casts 0-2 /LPF (0-2); Ketones NEGATIVE (NEGATIVE); Leukocyte Esterase NEGATIVE (NEGATIVE); Mucus SLIGHT /HPF (NEGATIVE); Nitrite NEGATIVE (NEGATIVE); Protein,Urine Dip NEGATIVE (Negative); Specific Gravity 1.031 (1.005-1.025); Urobilinogen 2 mg/dL (0-1)
[2021-06-12 08:59] LABS: Bacteria FEW /HPF (NEGATIVE); Epithelial Cells FEW /HPF (FEW); RBC 0-2 /HPF (0-2); WBC 0-2 /HPF (0-5)
--- NOTE | 2021-06-12 09:43 | XRAY ---
Indication: Epigastric pain. Right upper quadrant abdominal sonogram demonstrates normally distended gallbladder wall thickening up to 3 mm. No gallstones or pericholecystic fluid. Common bile duct measures 3.7 mm. Visualized liver demonstrates a 2.2 cm left lobe cyst. No suspicious solid hepatic mass or ascites. Right kidney 10.8 cm in length and sonographically unremarkable. Pancreas not visualized. Impression: 1. Gallbladder wall thickening without gallstones or biliary distention. Rule out chronic cholecystitis. 2. Hepatic cyst. 3. Nonvisualization pancreas.
[2021-06-12] MEDS ORDERED: Zosyn 3.375 GM Vial 3.375 GM in Sodium Chloride 100ML MINI-BAG PLUS 100 ML IV ONE (10:03)
[2021-06-12] MEDS ORDERED: MORPHINE SULFATE 2 MG INJ IV PRN ×2 (10:21→15:31)
[2021-06-12] MEDS ORDERED: Zofran 4 MG/2 ML VIAL IV PRN (10:21)
--- NOTE | 2021-06-12 14:21 | XRAY ---
Indication: Right upper quadrant pain. Comparison: None Patient received 4.6 mCi technetium 99 Choletec. Immediate anterior planar imaging was performed for 90 minutes. Normal hepatic activity on the first image. Normal biliary and gallbladder activity within 30 minutes. Normal biliary to bowel activity within 50 minutes. Patient then ingested 8 ounces Ensure Plus. Ejection fraction calculated 33%, low. Normal range is greater than 35%. Impression: 1. HIDA scan portion examination is negative. 2. Low ejection fraction 33%. Rule out chronic cholecystitis.
--- NOTE | 2021-06-12 15:30 | PCM.HP ---
History of Present Illness - Chief Complaint Chief Complaint: Biliary colic History of Present Illness: is a 80 year old male who is well known to me, he has a history of CAD with stents, pacemaker in situ and copd, he reported to the ER early this morning with a 2 day history of cramping, severe epigastric abdominal pain with associated nausea and vomiting, he has no diarrhea, no change in bowel habits, no fever. Denies cough, no chest pain or shortness of breath. His pain waxes and wanes, currently not severe. - Review of Systems Constitutional: No Fever, No Chills Respiratory: No Cough, No Short Of Breath Cardiac: No Chest Pain, No Edema, No Syncope Abdominal/Gastrointestinal: Abdominal Pain, Nausea, Vomiting, No Diarrhea, No Constipation Genitourinary Symptoms: No Dysuria Skin: No Rash All Other Systems: Reviewed and Negative Medications & Allergies Home Medications: Home Medication List Nitroglycerin 0.4 mg SL UD PRN 09/17/12 [History Confirmed 06/12/21] Rosuvastatin Calcium [Crestor] 20 mg PO DAILY 09/17/12 [History Confirmed 05/31 12/18] ALPRAZolam 0.5 MG [xanAX 0.5 MG] 0.5 mg PO HS 01/13/13 [History Confirmed 06/12/21] Temazepam [Restoril] 30 mg PO HS 01/13/13 [History Confirmed 06/12/21] Bumetanide 1 mg [Bumex 1 mg] 1 mg PO DAILY PRN PRN 08/24/15 [History Confirmed 06/12/21] Carvedilol 6.25 mg [Coreg 6.25 MG] 12.5 mg PO BID 08/24/15 [History Confirmed 06/12/21] Albuterol 2.5 mg/3 ml Neb [Proventil 2.5 mg/3 ml Neb] 2.5 mg IH Q4-6HPRN PRN 03/20/17 [History Confirmed 06/12/21] Apixaban [Eliquis] 5 mg PO BID 03/20/17 [History Confirmed 06/12/21] Budesonide/Formoterol Fumarate [Symbicort 160-4.5 Mcg Inhaler] 6 gm IH DAILY 03/20/17 [History Confirmed 06/12/21] Lisinopril 20 mg [Zestril 20 MG] 5 mg PO DAILY 03/20/17 [History Confirmed 06/12/21] Potassium Chloride 20 Meq [Klor-Con 20 MEQ] 20 meq PO DAILY PRN PRN 03/20/17 [History Confirmed 06/12/21] Amlodipine Besylate 5 mg [Norvasc 5 mg] 5 mg PO DAILY 11/14/20 [History Confirmed 06/12/21] Allergies/Adverse Reactions: Allergies Allergy/AdvReac Type Severity Reaction Status Date / Time No Known Drug Allergies Allergy Verified 06/12/21 06:28 - Past Medical History Past Medical History: Yes Neurological History: No Pertinent History ENT History: Cataracts Cardiac History: High Cholesterol, Hypertension, Myocardial Infarction ([place]) Respiratory History: COPD, Pneumonia, Other Endocrine Medical History: No Pertinent History Musculoskelatal History: No Pertinent History GI Medical History: Diverticulitis, Diverticulosis History: No Pertinent History Pyscho-Social History: Anxiety Male Reproductive Disorders: Prostate Cancer Comment: COVID-17 september 2020, , CABG (10-12 years) - Past Surgical History Past Surgical History: Yes Neuro Surgical History: No Pertinent History Cardiac History: CABG, Cardiac Catheterization, Cardiac Stent, Pacemaker Respiratory Surgery: No Pertinent History GI Surgical History: Hernia Repair Genitourinary Surgical Hx: No Pertinent History Musculskeletal Surgical Hx: Orthopedic Surgery Male Surgical History: Prostate Surgery, Vasectomy Other Surgical History: left shoulder reconstructioncyst from tail bone and neck, cyst removed from neck, colonoscopy - Social History Smoking Status: Former smoker How long have you smoked: 40yrs Exposure to second hand smoke: No Alcohol: None Drug Use: none - Physical Exam Vital Signs: Vital Signs - 24 hr Temp Pulse Resp BP Pulse Ox 06/12/21 11:17 60 152/64 98 06/12/21 07:36 60 152/64 96 06/12/21 06:59 99 06/12/21 06:15 97.2 F 60 16 168/83 99 General Appearance: no apparent distress, alert Neurologic Exam: alert, oriented x 3, cooperative, normal mood/affect, nml cerebellar function, nml station & gait, sensation nml, No motor deficits Respiratory Exam: normal breath sounds, lungs clear, No respiratory distress Cardiovascular Exam: regular rate/rhythm, normal heart sounds, normal peripheral pulses Gastrointestinal/Abdomen Exam: tenderness (right upper and epigastrium, right lower abdomen.), No distention, No guarding, No rebound Extremity Exam: normal inspection, normal range of motion, pelvis stable Skin Exam: normal color, warm, dry, No rash Results - Labs Lab/Micro Results: Lab Results-Last 24 Hours 06/12/21 06/12/21 06/12/21 Range/Units 06:20 06:20 06:45 WBC 7.8 (4.0-10.5) K/mm3 RBC 4.02 L (4.1-5.6) M/mm3 Hgb 11.9 L (12.5-18.0) gm/dl Hct 37.8 L (42-50) % MCV 94.0 (78-100) fl MCH 29.6 (26-32) pg MCHC 31.5 L (32-36) g/dl RDW 15.3 H (11.5-14.0) % Plt Count 114 L (150-450) K/mm3 MPV 10.8 (7.5-11.0) fl Gran % 75.3 H (36.0-66.0) % Eos # (Auto) 0.10 (0-0.5) Absolute Lymphs (auto) 0.93 L (1.0-4.6) Absolute Monos (auto) 0.86 (0.0-1.3) Lymphocytes % 12.0 L (24.0-44.0) % Monocytes % 11.1 (0.0-12.0) % Eosinophils % 1.3 (0.00-5.0) % Basophils % 0.3 (0.0-0.4) % Absolute Granulocytes 5.87 (1.4-6.9) Basophils # 0.02 (0-0.4) Sodium 138 (137-145) mmol/L Potassium 3.5 (3.5-5.1) mmol/L Chloride 100 (98-107) mmol/L Carbon Dioxide 27 (22-30) mmol/L Anion Gap 14.4 (5-15) MEQ/L BUN 25 H (9-20) mg/dL Creatinine 1.15 (0.66-1.25) mg/dL Estimated GFR > 60.0 ML/MIN Glucose 117 H (74-106) mg/dL Calcium 9.0 (8.4-10.2) mg/dL Total Bilirubin 0.80 (0.2-1.3) mg/dL AST 28 (17-59) U/L ALT 19 (0-50) U/L Alkaline Phosphatase 65 (38-126) U/L Troponin I < 0.012 (0.000-0.034) ng/mL Serum Total Protein 7.3 (6.3-8.2) g/dL Albumin 4.2 (3.5-5.0) g/dL Amylase 92 (30-110) U/L Lipase 32 (23-300) U/L Urine Color (YELLOW) Urine Appearance (CLEAR) Urine pH (5-6) Ur Specific [place] (1.005-1.025) Urine Protein (Negative) Urine Ketones (NEGATIVE) Urine Blood (0-5) Sheng/ul Urine Nitrite (NEGATIVE) Urine Bilirubin (NEGATIVE) Urine Urobilinogen (0-1) mg/dL Ur Leukocyte Esterase (NEGATIVE) Urine WBC (Auto) (0-5) /HPF Urine RBC (Auto) (0-2) /HPF U Hyaline Cast (Auto) (0-2) /LPF U Epithel Cells (Auto) (FEW) /HPF Urine Bacteria (Auto) (NEGATIVE) /HPF Urine Mucus (Auto) (NEGATIVE) /HPF Urine Culture Reflexed (NO) Urine Glucose (NEGATIVE) mg/dL SARS-CoV-2 (PCR) (NEGATIVE) 06/12/21 06/12/21 06/12/21 Range/Units 08:26 09:40 10:48 WBC (4.0-10.5) K/mm3 RBC (4.1-5.6) M/mm3 Hgb (12.5-18.0) gm/dl Hct (42-50) % MCV (78-100) fl MCH (26-32) pg MCHC (32-36) g/dl RDW (11.5-14.0) % Plt Count (150-450) K/mm3 MPV (7.5-11.0) fl Gran % (36.0-66.0) % Eos # (Auto) (0-0.5) Absolute Lymphs (auto) (1.0-4.6) Absolute Monos (auto) (0.0-1.3) Lymphocytes % (24.0-44.0) % Monocytes % (0.0-12.0) % Eosinophils % (0.00-5.0) % Basophils % (0.0-0.4) % Absolute Granulocytes (1.4-6.9) Basophils # (0-0.4) Sodium (137-145) mmol/L Potassium (3.5-5.1) mmol/L Chloride (98-107) mmol/L Carbon Dioxide (22-30) mmol/L Anion Gap (5-15) MEQ/L BUN (9-20) mg/dL Creatinine (0.66-1.25) mg/dL Estimated GFR ML/MIN Glucose (74-106) mg/dL Calcium (8.4-10.2) mg/dL Total Bilirubin (0.2-1.3) mg/dL AST (17-59) U/L ALT (0-50) U/L Alkaline Phosphatase (38-126) U/L Troponin I < 0.012 (0.000-0.034) ng/mL Serum Total Protein (6.3-8.2) g/dL Albumin (3.5-5.0) g/dL Amylase (30-110) U/L Lipase (23-300) U/L Urine Color YELLOW (YELLOW) Urine Appearance CLEAR (CLEAR) Urine pH 5.0 (5-6) Ur Specific [place] 1.031 (1.005-1.025) Urine Protein NEGATIVE (Negative) Urine Ketones NEGATIVE (NEGATIVE) Urine Blood NEGATIVE (0-5) Sheng/ul Urine Nitrite NEGATIVE (NEGATIVE) Urine Bilirubin NEGATIVE (NEGATIVE) Urine Urobilinogen 2 (0-1) mg/dL Ur Leukocyte Esterase NEGATIVE (NEGATIVE) Urine WBC (Auto) 0-2 (0-5) /HPF Urine RBC (Auto) 0-2 (0-2) /HPF U Hyaline Cast (Auto) 0-2 (0-2) /LPF U Epithel Cells (Auto) FEW (FEW) /HPF Urine Bacteria (Auto) FEW (NEGATIVE) /HPF Urine Mucus (Auto) SLIGHT (NEGATIVE) /HPF Urine Culture Reflexed NO (NO) Urine Glucose NEGATIVE (NEGATIVE) mg/dL SARS-CoV-2 (PCR) NEGATIVE (NEGATIVE) 09/13/21 Range/Units 12:50 WBC (4.0-10.5) K/mm3 RBC (4.1-5.6) M/mm3 Hgb (12.5-18.0) gm/dl Hct (42-50) % MCV (78-100) fl MCH (26-32) pg MCHC (32-36) g/dl RDW (11.5-14.0) % Plt Count (150-450) K/mm3 MPV (7.5-11.0) fl Gran % (36.0-66.0) % Eos # (Auto) (0-0.5) Absolute Lymphs (auto) (1.0-4.6) Absolute Monos (auto) (0.0-1.3) Lymphocytes % (24.0-44.0) % Monocytes % (0.0-12.0) % Eosinophils % (0.00-5.0) % Basophils % (0.0-0.4) % Absolute Granulocytes (1.4-6.9) Basophils # (0-0.4) Sodium (137-145) mmol/L Potassium (3.5-5.1) mmol/L Chloride (98-107) mmol/L Carbon Dioxide (22-30) mmol/L Anion Gap (5-15) MEQ/L BUN (9-20) mg/dL Creatinine (0.66-1.25) mg/dL Estimated GFR ML/MIN Glucose (74-106) mg/dL Calcium (8.4-10.2) mg/dL Total Bilirubin (0.2-1.3) mg/dL AST (17-59) U/L ALT (0-50) U/L Alkaline Phosphatase (38-126) U/L Troponin I < 0.012 (0.000-0.034) ng/mL Serum Total Protein (6.3-8.2) g/dL Albumin (3.5-5.0) g/dL Amylase (30-110) U/L Lipase (23-300) U/L Urine Color (YELLOW) Urine Appearance (CLEAR) Urine pH (5-6) Ur Specific [place] (1.005-1.025) Urine Protein (Negative) Urine Ketones (NEGATIVE) Urine Blood (0-5) Sheng/ul Urine Nitrite (NEGATIVE) Urine Bilirubin (NEGATIVE) Urine Urobilinogen (0-1) mg/dL Ur Leukocyte Esterase (NEGATIVE) Urine WBC (Auto) (0-5) /HPF Urine RBC (Auto) (0-2) /HPF U Hyaline Cast (Auto) (0-2) /LPF U Epithel Cells (Auto) (FEW) /HPF Urine Bacteria (Auto) (NEGATIVE) /HPF Urine Mucus (Auto) (NEGATIVE) /HPF Urine Culture Reflexed (NO) Urine Glucose (NEGATIVE) mg/dL SARS-CoV-2 (PCR) (NEGATIVE) - Radiology Impressions Radiology Exams & Impressions: Radiology Procedures Category Date Time Status ABDOMEN AND PELVIS W CONTRAST [CT] Stat Exams 06/12/21 06:37 Completed ABDOMINAL-LIMITED [US] Stat Exams 06/12/21 08:58 Completed HIDA-GALL BLADDER [NUCMED] Stat Exams 06/12/21 10:31 Completed Assessment/Plan (1) Biliary colic Current Visit: Yes Status: Acute Assessment & Plan: keep npo, continue zosyn, fluids antiemetics and pain control. surgery consul spencer, HIDA with biliary dyskinesia/thick wall concerning for chronic cholecystitis, stymptomatology fits with biliary colic Code(s): K80.50 - CALCULUS OF BILE DUCT W/O CHOLANGITIS OR CHOLECYST W/O OBST (2) CAD (coronary artery disease) Current Visit: Yes Status: Acute Assessment & Plan: stable currently, no recent change in exercise tolerance. follows with [facility] from [facility] Dr [place] Code(s): I25.10 - ATHSCL HEART DISEASE OF [place] CORONARY ARTERY W/O ANG PCTRS (3) Atrial fibrillation Current Visit: Yes Status: Acute Assessment & Plan: hold eliquis pending possible surgical intervention, will resume when ok with surgery. Code(s): I48.91 - UNSPECIFIED ATRIAL FIBRILLATION
[2021-06-12] MEDS ORDERED: DUONEB 0.5-3 MG/3 ml Neb IH PRN (15:36)
[2021-06-12] MEDS: PROTONIX 40 MG IV IV SCH (16:18)
[2021-06-12] MEDS: Sodium Chloride 0.9% 1000 ML 1,000 ML IV SCH ×2 (16:19→23:18)
[2021-06-12] MEDS ORDERED: Nitrostat 0.4 MG Tablet SL PRN (17:22)
[2021-06-12] MEDS ORDERED: PROVENTIL 2.5 MG/3 ML NEB IH PRN (17:22)
[2021-06-12] MEDS ORDERED: VENTOLIN COMMON CANISTER IH PRN (17:38)
[2021-06-12] MEDS: Advair Hfa 115/21 Common canister IH SCH (17:45)
[2021-06-12] MEDS: Zosyn 3.375 GM Vial 3.375 GM in Sodium Chloride 100ML MINI-BAG PLUS 100 ML IV SCH ×2 (18:43→23:18)
[2021-06-12] MEDS: Imdur 60MG PO SCH (18:58)
[2021-06-12] MEDS: Zestril 5 MG PO SCH (18:58)
[2021-06-12] MEDS: ZOCOR 20MG PO SCH (18:58)
[2021-06-12] MEDS: NORVASC 5 MG PO SCH (18:58)
[2021-06-12] MEDS: Cordarone 200 MG PO SCH (18:58)
[2021-06-12] MEDS ORDERED: NORCO 5/325 MG PO PRN (19:00)
[2021-06-12] MEDS: ELIQUIS 2.5 MG TABLET PO SCH (21:33)
[2021-06-12] MEDS: COREG 12.5 MG PO SCH (21:34)
[2021-06-12] MEDS ORDERED: TEMAZEPAM 30 MG PO SCH (22:00)
[2021-06-12] MEDS ORDERED: Restoril 15 MG PO SCH (22:00)
[2021-06-12] MEDS ORDERED: xanAX 0.5 MG PO SCH (22:00)
[2021-06-12 23:45] VITALS: PULSE 60
[2021-06-13] MEDS: Zosyn 3.375 GM Vial 3.375 GM in Sodium Chloride 100ML MINI-BAG PLUS 100 ML IV SCH ×2 (05:09→11:38)
[2021-06-13 06:33] LABS: Absolute Neutrophil Ct (ANC) 3.68 (1.4-6.9); BASOPHIL % 0.4 % (0.0-0.4); Basophil (Absolute #) 0.02 (0-0.4); Eosinophil % 3.9 % (0.00-5.0); Hematocrit 35.9 % (42-50); Hemoglobin 11.1 gm/dl (12.5-18.0); Lymphocyte (Absolute #) 0.64 (1.0-4.6); Lymphocytes % 12.5 % (24.0-44.0); Mean Corpuscular Hemoglobin 29.4 pg (26-32); Mean Corpuscular Hgb Concent. 30.9 g/dl (32-36); Mean Platelet Volume 11.2 fl (7.5-11.0); Monocyte (Absolute #) 0.57 (0.0-1.3); Monocytes % 11.2 % (0.0-12.0); Platelet Count 102 K/mm3 (150-450); Red Blood Count 3.78 M/mm3 (4.1-5.6); Red Cell Distribution Width 15.2 % (11.5-14.0); White Blood Count 5.1 K/mm3 (4.0-10.5)
[2021-06-13 07:13] LABS: ALBUMIN 3.7 g/dL (3.5-5.0); ALKALINE PHOSPHATASE 56 U/L (38-126); ANION GAP 11.6 MEQ/L (5-15); BLOOD UREA NITROGEN 19 mg/dL (9-20); CHLORIDE 101 mmol/L (98-107); Calcium 8.8 mg/dL (8.4-10.2); Carbon Dioxide 28 mmol/L (22-30); Creatinine 1 0.97 mg/dL (0.66-1.25); EST GLOMERULAR FILTRATION RATE > 60.0 ML/MIN; Glucose 86 mg/dL (74-106); Potassium 3.9 mmol/L (3.5-5.1); SGOT/AST 26 U/L (17-59); SGPT/ALT 16 U/L (0-50); SODIUM 136 mmol/L (137-145); Total Protein 6.7 g/dL (6.3-8.2)
[2021-06-13] MEDS: Advair Hfa 115/21 Common canister IH SCH (07:41)
--- NOTE | 2021-06-13 08:56 | PCM.DS ---
Discharge Summary Date of Admission: 06/12/21 14:16 Admitting Physician: ABBEY MARS Consults: Consults on Case 06/12/21 10:21 Consult Surgery ROUTINE Primary Care Provider: ABBEY MARS Allergies Allergies No Known Drug Allergies Allergy (Verified 06/12/21 06:28) Hospital Summary - Hospital Course Hospital Course: Pt is 80 yo male pt of Dr[address] Mars with CAD with stents, pacemaker in situ, COPD, and afib who was admitted through ER with abd pain, dx with biliary colic. His WBC were normal. AST and ALT not elevated. Was made NPO, put on fluids and antiemetics and surgery consulted. Dr. Mckayla Calderon found pt to be nonsurgical at this time, thank you. He is eating this morning (liquid diet) and so far tolerating it well. He is denying abdominal pain except for when he pushes on the area, when it is 5/10. He last took a norco over 12 hours ago. If he tolerates his advanced diet today, will discharge to home on augmentin po and have him f/u with Dr. Mars in office in 1 week. F/u with surgery as directed by Dr. Mars. - Vitals & Intake/Output Vital Signs: Vital Signs Temperature 97.1 F 06/13/21 08:00 Pulse Rate 60 06/13/21 08:00 Respiratory Rate 14 06/13/21 08:00 Blood Pressure 162/70 06/13/21 08:00 O2 Sat by Pulse Oximetry 94 L 06/13/21 08:00 Intake & Output: Intake & Output 06/10/21 06/11/21 06/12/21 06/13/21 11:59 11:59 11:59 11:59 Intake Total 1812 Output Total 1100 Balance 712 Weight 105.506 kg 104.3 kg - Lab Result Diagrams: 06/13/21 04:26 06/13/21 04:26 Lab Results-Last 24 Hrs: Lab Results-Last 24 Hours 06/12/21 06/12/21 06/12/21 Range/Units 08:26 09:40 10:48 WBC (4.0-10.5) K/mm3 RBC (4.1-5.6) M/mm3 Hgb (12.5-18.0) gm/dl Hct (42-50) % MCV (78-100) fl MCH (26-32) pg MCHC (32-36) g/dl RDW (11.5-14.0) % Plt Count (150-450) K/mm3 MPV (7.5-11.0) fl Gran % (36.0-66.0) % Eos # (Auto) (0-0.5) Absolute Lymphs (auto) (1.0-4.6) Absolute Monos (auto) (0.0-1.3) Lymphocytes % (24.0-44.0) % Monocytes % (0.0-12.0) % Eosinophils % (0.00-5.0) % Basophils % (0.0-0.4) % Absolute Granulocytes (1.4-6.9) Basophils # (0-0.4) Sodium (137-145) mmol/L Potassium (3.5-5.1) mmol/L Chloride (98-107) mmol/L Carbon Dioxide (22-30) mmol/L Anion Gap (5-15) MEQ/L BUN (9-20) mg/dL Creatinine (0.66-1.25) mg/dL Estimated GFR ML/MIN Glucose (74-106) mg/dL Calcium (8.4-10.2) mg/dL Total Bilirubin (0.2-1.3) mg/dL AST (17-59) U/L ALT (0-50) U/L Alkaline Phosphatase (38-126) U/L Troponin I < 0.012 (0.000-0.034) ng/mL Serum Total Protein (6.3-8.2) g/dL Albumin (3.5-5.0) g/dL Urine Color YELLOW (YELLOW) Urine Appearance CLEAR (CLEAR) Urine pH 5.0 (5-6) Ur Specific [place] 1.031 (1.005-1.025) Urine Protein NEGATIVE (Negative) Urine Ketones NEGATIVE (NEGATIVE) Urine Blood NEGATIVE (0-5) Sheng/ul Urine Nitrite NEGATIVE (NEGATIVE) Urine Bilirubin NEGATIVE (NEGATIVE) Urine Urobilinogen 2 (0-1) mg/dL Ur Leukocyte Esterase NEGATIVE (NEGATIVE) Urine WBC (Auto) 0-2 (0-5) /HPF Urine RBC (Auto) 0-2 (0-2) /HPF U Hyaline Cast (Auto) 0-2 (0-2) /LPF U Epithel Cells (Auto) FEW (FEW) /HPF Urine Bacteria (Auto) FEW (NEGATIVE) /HPF Urine Mucus (Auto) SLIGHT (NEGATIVE) /HPF Urine Culture Reflexed NO (NO) Urine Glucose NEGATIVE (NEGATIVE) mg/dL SARS-CoV-2 (PCR) NEGATIVE (NEGATIVE) 06/12/21 06/12/21 06/13/21 Range/Units 12:50 16:20 04:26 WBC (4.0-10.5) K/mm3 RBC (4.1-5.6) M/mm3 Hgb (12.5-18.0) gm/dl Hct (42-50) % MCV (78-100) fl MCH (26-32) pg MCHC (32-36) g/dl RDW (11.5-14.0) % Plt Count (150-450) K/mm3 MPV (7.5-11.0) fl Gran % (36.0-66.0) % Eos # (Auto) (0-0.5) Absolute Lymphs (auto) (1.0-4.6) Absolute Monos (auto) (0.0-1.3) Lymphocytes % (24.0-44.0) % Monocytes % (0.0-12.0) % Eosinophils % (0.00-5.0) % Basophils % (0.0-0.4) % Absolute Granulocytes (1.4-6.9) Basophils # (0-0.4) Sodium (137-145) mmol/L Potassium (3.5-5.1) mmol/L Chloride (98-107) mmol/L Carbon Dioxide (22-30) mmol/L Anion Gap (5-15) MEQ/L BUN (9-20) mg/dL Creatinine (0.66-1.25) mg/dL Estimated GFR ML/MIN Glucose (74-106) mg/dL Calcium (8.4-10.2) mg/dL Total Bilirubin (0.2-1.3) mg/dL AST (17-59) U/L ALT (0-50) U/L Alkaline Phosphatase (38-126) U/L Troponin I < 0.012 < 0.012 < 0.012 (0.000-0.034) ng/mL Serum Total Protein (6.3-8.2) g/dL Albumin (3.5-5.0) g/dL Urine Color (YELLOW) Urine Appearance (CLEAR) Urine pH (5-6) Ur Specific [place] (1.005-1.025) Urine Protein (Negative) Urine Ketones (NEGATIVE) Urine Blood (0-5) Sheng/ul Urine Nitrite (NEGATIVE) Urine Bilirubin (NEGATIVE) Urine Urobilinogen (0-1) mg/dL Ur Leukocyte Esterase (NEGATIVE) Urine WBC (Auto) (0-5) /HPF Urine RBC (Auto) (0-2) /HPF U Hyaline Cast (Auto) (0-2) /LPF U Epithel Cells (Auto) (FEW) /HPF Urine Bacteria (Auto) (NEGATIVE) /HPF Urine Mucus (Auto) (NEGATIVE) /HPF Urine Culture Reflexed (NO) Urine Glucose (NEGATIVE) mg/dL SARS-CoV-2 (PCR) (NEGATIVE) 06/13/21 06/13/21 Range/Units 04:26 04:26 WBC 5.1 (4.0-10.5) K/mm3 RBC 3.78 L (4.1-5.6) M/mm3 Hgb 11.1 L (12.5-18.0) gm/dl Hct 35.9 L (42-50) % MCV 95.0 (78-100) fl MCH 29.4 (26-32) pg MCHC 30.9 L (32-36) g/dl RDW 15.2 H (11.5-14.0) % Plt Count 102 L (150-450) K/mm3 MPV 11.2 H (7.5-11.0) fl Gran % 72.0 H (36.0-66.0) % Eos # (Auto) 0.20 (0-0.5) Absolute Lymphs (auto) 0.64 L (1.0-4.6) Absolute Monos (auto) 0.57 (0.0-1.3) Lymphocytes % 12.5 L (24.0-44.0) % Monocytes % 11.2 (0.0-12.0) % Eosinophils % 3.9 (0.00-5.0) % Basophils % 0.4 (0.0-0.4) % Absolute Granulocytes 3.68 (1.4-6.9) Basophils # 0.02 (0-0.4) Sodium 136 L (137-145) mmol/L Potassium 3.9 (3.5-5.1) mmol/L Chloride 101 (98-107) mmol/L Carbon Dioxide 28 (22-30) mmol/L Anion Gap 11.6 (5-15) MEQ/L BUN 19 (9-20) mg/dL Creatinine 0.97 (0.66-1.25) mg/dL Estimated GFR > 60.0 ML/MIN Glucose 86 (74-106) mg/dL Calcium 8.8 (8.4-10.2) mg/dL Total Bilirubin 0.90 (0.2-1.3) mg/dL AST 26 (17-59) U/L ALT 16 (0-50) U/L Alkaline Phosphatase 56 (38-126) U/L Troponin I (0.000-0.034) ng/mL Serum Total Protein 6.7 (6.3-8.2) g/dL Albumin 3.7 (3.5-5.0) g/dL Urine Color (YELLOW) Urine Appearance (CLEAR) Urine pH (5-6) Ur Specific [place] (1.005-1.025) Urine Protein (Negative) Urine Ketones (NEGATIVE) Urine Blood (0-5) Sheng/ul Urine Nitrite (NEGATIVE) Urine Bilirubin (NEGATIVE) Urine Urobilinogen (0-1) mg/dL Ur Leukocyte Esterase (NEGATIVE) Urine WBC (Auto) (0-5) /HPF Urine RBC (Auto) (0-2) /HPF U Hyaline Cast (Auto) (0-2) /LPF U Epithel Cells (Auto) (FEW) /HPF Urine Bacteria (Auto) (NEGATIVE) /HPF Urine Mucus (Auto) (NEGATIVE) /HPF Urine Culture Reflexed (NO) Urine Glucose (NEGATIVE) mg/dL SARS-CoV-2 (PCR) (NEGATIVE) - Radiology Exams Ordered Rad Exams-Entire Visit: Radiology Procedures Category Date Time Status ABDOMEN AND PELVIS W CONTRAST [CT] Stat Exams 06/12/21 06:37 Completed ABDOMINAL-LIMITED [US] Stat Exams 06/12/21 08:58 Completed HIDA-GALL BLADDER [NUCMED] Stat Exams 06/12/21 10:31 Completed - Procedures and Test Procedures and Tests throughout Hospitalization: Therapy Orders & Screens 06/12/21 18:17 Respiratory Therapy Assessment DAILY Comment: Diagnosis: Biliary colic Discharge Exam General Appearance: no apparent distress, alert, obese Neurologic Exam: oriented x 3, cooperative, normal mood/affect Eye Exam: eyes nml inspection Ears, Nose, Throat Exam: moist mucous membranes Neck Exam: normal inspection Respiratory Exam: normal breath sounds, lungs clear, No crackles/rales, No rhonchi, No wheezing Cardiovascular Exam: regular rate/rhythm, normal heart sounds, No murmur Gastrointestinal/Abdomen Exam: soft, normal bowel sounds, tenderness (RUQ, RLQ), No mass, No guarding, No rebound Back Exam: normal inspection, No rash Extremity Exam: normal inspection, No pedal edema, No swelling Skin Exam: normal color, warm, dry, No rash Final Diagnosis/Problem List - Final Discharge Diagnosis/Problem (1) Biliary colic Current Visit: Yes Status: Resolved Assessment & Plan: Pain is gone aside from when he puts pressure on the abdomen. Adv diet as tolerated today, and if no vomiting or return of pain will discharge to home later today on po augmentin x 8d (to finish 10d total antibiotic). F/u with Dr. Mars next week and surgery as directed by Dr. Mars. Code(s): K80.50 - CALCULUS OF BILE DUCT W/O CHOLANGITIS OR CHOLECYST W/O OBST (2) Atrial fibrillation Current Visit: Yes Status: Chronic Code(s): I48.91 - UNSPECIFIED ATRIAL FIBRILLATION (3) CAD (coronary artery disease) Current Visit: Yes Status: Chronic Code(s): I25.10 - ATHSCL HEART DISEASE OF [place] CORONARY ARTERY W/O ANG PCTRS (4) COPD (chronic obstructive pulmonary disease) Current Visit: Yes Status: Chronic - Discharge Disposition: Home, Self-Care Condition: Good Prescriptions: New Lactobacillus Acidophilus [Acidophilus TABLET] 1 tab PO BID #16 tablet Amox Tr/Potass Clav. 875 mg [Augmentin 875-125 Tablet] 875 mg PO BID #16 tablet Continue Rosuvastatin Calcium [Crestor] 20 mg PO DAILY Nitroglycerin 0.4 mg SL UD PRN PRN Reason: Chest Pain Temazepam [Restoril] 30 mg PO HS ALPRAZolam 0.5 MG [xanAX 0.5 MG] 0.5 mg PO HS Carvedilol 6.25 mg [Coreg 6.25 MG] 12.5 mg PO BID Bumetanide 1 mg [Bumex 1 mg] 1 mg PO DAILY PRN PRN PRN Reason: edema Albuterol 2.5 mg/3 ml Neb [Proventil 2.5 mg/3 ml Neb] 2.5 mg IH Q4- 6HPRN PRN PRN Reason: Shortness Of Breath Potassium Chloride 20 Meq [Klor-Con 20 MEQ] 20 meq PO DAILY PRN PRN PRN Reason: w/ water pill Budesonide/Formoterol Fumarate [Symbicort 160-4.5 Mcg Inhaler] 6 gm IH DAILY Apixaban [Eliquis] 5 mg PO BID Lisinopril 20 mg [Zestril 20 MG] 5 mg PO DAILY Amiodarone HCl 200 mg [Cordarone 200 MG] 200 mg PO DAILY Amlodipine Besylate 5 mg [Norvasc 5 mg] 5 mg PO DAILY Isosorbide Mononitrate 60 mg [Imdur 60MG] 60 mg PO DAILY Follow up with: ABBEY MARS MD [Primary Care Provider] -
[2021-06-13] MEDS ORDERED: NON-FORMULARY ITEM (Rosuvastatin Calcium [Crestor] 20 MG) PO SCH (10:00)
[2021-06-13] MEDS ORDERED: Zestril 10 MG PO SCH (10:00)
[2021-06-13] MEDS ORDERED: GLYCERIN ADULT SUPPOSITORY RC ONE (11:21)
[2021-06-13] MEDS: ZOCOR 20MG PO SCH (11:38)
[2021-06-13] MEDS: ELIQUIS 2.5 MG TABLET PO SCH (11:39)
[2021-06-13] MEDS: Zestril 5 MG PO SCH (11:39)
[2021-06-13] MEDS: NORVASC 5 MG PO SCH (11:39)
[2021-06-13] MEDS: PROTONIX 40 MG IV IV SCH (11:39)
[2021-06-13] MEDS: Imdur 60MG PO SCH (11:39)
[2021-06-13] MEDS: Cordarone 200 MG PO SCH (11:39)
[2021-06-13] MEDS: COREG 12.5 MG PO SCH (11:39)
--- NOTE | 2021-06-13 13:06 | CONS ---
DATE: 06/12/2021 HISTORY: This is an 80-year-old gentleman who started having pain in his epigastric region on Saturday. He said it was worse when he moved around. He is having more pain on his right upper, right middle and slightly right lower abdomen as well as radiating to his right lateral abdomen. He has also had a decreased appetite. He said that Saturday which was two days at about 1500 hours, he ate at a restaurant. He did not eat the same food as everyone else. He ate coleslaw and a fish sandwich. After that he started having vomiting. He did not have any diarrhea. No one else got sick. No one else is sick yet, either. He said he was doubled over with the vomiting. He tried to go to congregational on Saturday and initially was okay but then he started hurting again. He ate small dinner and then this morning on, Saturday at 0400 hours, he woke up with worse pain. He is not having nausea or vomiting now. He has never had epigastric or right upper quadrant pain in the distant past. He is currently not having any diarrhea either. His last bowel movement was normal and it was Saturday. He has no shortness of breath, no chest pain, no blood in his stool. No hematuria. No fever. No other symptoms. He was seen at bedside initially by himself in the [facility] scan [facility] and again with his in his hospital bed room. PAST MEDICAL/SURGICAL HISTORY: Includes prostate cancer surgery, bypass surgery, hernia repair, shoulder surgery. He states that he has never had stomach ulcers before. The patient does report that he did have a stent graft. It looks like he has a lower midline incision as well as inguinal incision. Abdominal aortic stent graft. MEDICATIONS: His medications are reviewed. He does take Eliquis. ALLERGIES: NKDA. SOCIAL HISTORY: No tobacco. No alcohol use. FAMILY HISTORY: Brother with lung cancer. PHYSICAL EXAMINATION: Vital signs are all stable. He is afebrile. He is not tachycardic. GENERAL: No acute distress. Alert, oriented x3. CVS: Regular rate and rhythm. PULMONARY: Nonlabored respirations. Sitting up in bed without issue. ABDOMEN: Soft, moderately tender along the right upper, right middle, slightly towards the right lower quadrant. Very minimally tender towards the far most right lateral abdomen. No significant posterior right flank pain. EXTREMITIES: Normal. LAB DATA AND TESTS: Labs: White blood cell count 7.8, hemoglobin 11.9, PLT count 114,000. Creatinine 1.15, bilirubin 0.8, ALT 19, AST 28. Amylase and lipase are normal. His UA did not show any significant sign of infection, no blood. COVID test is negative. Creatinine 1.15. Imaging studies: Right upper quadrant ultrasound showed common bile duct 3.7, wall is approximately [address] scan was negative except for a thickened gallbladder wall with some possible fluid around it. HIDA scan was 33%. ASSESSMENT AND PLAN: This is an 80-year-old who had nausea and vomiting which has resolved and now has abdominal pain. All of his labs, imaging studies and his clinical status have been reviewed. At this time, he is nontoxic. He does have a benign exam. He is moderately tender. It is hard to say what has exactly caused his pain. He does not have a classic cholecystitis even though his gallbladder looked somewhat thickened on the CT scan. His ultrasound does not really agree with this and the wall is much thinner on the ultrasound. The patient also does not have any gallstones and he had a HIDA scan and his gallbladder does appear to be working slightly below normal level but it is still working quite well considering 33%. Also, the patient's white blood cell count is normal. His amylase, lipase, bilirubin, liver function tests are all normal as well. At this time, it is hard to say what his exact source of pain is. My suspicion is he could also have something related to his stomach with all of the vomiting that he had and the pain starting after he was vomiting. He does not look like he has anything perforated because his white count is normal. He is completely nontoxic and this has been going on for a couple of days. I also have some suspicion he could even have a mild ischemic colitis with his very slightly elevated creatinine and that he could have been dehydrated from the vomiting but his colon does not appear to be thickened on his CT scan so this may be mild. At this time, I discussed with him and his . We are going to continue to try to figure out what has caused his abdominal pain. We are going to give him some IV fluids, rehydrate him, re-evaluate his abdomen tomorrow, let him have a small amount of liquids and see how he does. He has had endoscopies in the past with Dr. Misael Calderon and I will discuss the case with him as well.
[2021-06-13 17:49] VITALS: BP 101/51
[2021-06-15 07:55] VITALS: O2SAT 99
== END 2021-06-13 14:32 | disposition home or self-care (01) ==
LOC: ED 06:09 → MED SURG 14:16
PROVIDERS: ADMIT Family Medicine; ATTEND Family Medicine
DX: K80.50 Calculus of bile duct without cholangitis or cholecystitis without obstruction (principal); R11.2 Nausea with vomiting, unspecified; J44.9 Chronic obstructive pulmonary disease, unspecified; I25.10 Atherosclerotic heart disease of native coronary artery without angina pectoris; I48.91 Unspecified atrial fibrillation; Z79.01 Long term (current) use of anticoagulants; Z79.899 Other long term (current) drug therapy; Z95.0 Presence of cardiac pacemaker; I10 Essential (primary) hypertension; E78.00 Pure hypercholesterolemia, unspecified; Z20.822 Contact with and (suspected) exposure to COVID-19
CPT/HCPCS: 36415; 74177; 76705; 78226; 80053; 81001; 82150; 83690; 84484; 85025; 93005; 94640; 94760; 96374; 96375; 99285; A9537; G0378; U0003; J2270; J2405; A9270-GY

== ENCOUNTER 2021-08-25 09:41 | Day surgery (SDC) | payer MEDICARE, OTHER ==
[2021-08-25] MEDS ORDERED: Lactated Ringers 1,000 ML IV ONE (10:02)
[2021-08-25] MEDS ORDERED: Versed 2 MG/2 ML Injection ONE (10:25)
[2021-08-25] MEDS ORDERED: DIPRIVAN 200 MG/20 ML IV ONE ×2 (10:25→10:59)
[2021-08-25] MEDS ORDERED: SUBLIMAZE 100 MCG/2 ML ONE (10:25)
[2021-08-25] MEDS ORDERED: Lactated Ringers 1,000 ML IV SCH (10:30)
[2021-08-25] MEDS ORDERED: KEFZOL 1 GM ONE (10:48)
[2021-08-25] MEDS ORDERED: Sensorcaine 0.25% 10 ML ONE ×2 (10:55→11:05)
[2021-08-25 12:46] VITALS: PULSE 60
[2021-08-25 12:55] VITALS: BP 172/80; O2SAT 96
--- NOTE | 2021-08-28 08:15 | OP ---
SURGERY DATE/TIME: 08/25/2021 1039 PREOPERATIVE DIAGNOSIS: Two infected cysts, 2.5 cm left neck and 4 cm left groin. POSTOPERATIVE DIAGNOSIS: Two infected cysts, 2.5 cm left neck and 4 cm left groin. PROCEDURES: 1) Excision and open treatment of left neck cystic abscess. 2) Excision and open treatment of 4 cm left groin. SURGEON: Misael Calderon M.D. ANESTHESIA: MAC. COMPLICATIONS: None. CONDITION: Stable. INDICATION: The patient has two infected areas. DESCRIPTION OF PROCEDURE: He had MAC sedation. They were both elliptically excised, totally removed even the core. They were both cystic and they were both abscessed. The cores were both removed on both lesions. Given electrocautery and then both lesions were packed. The patient tolerated the procedure satisfactory.
== END 2021-08-25 12:55 | disposition home or self-care (01) ==
LOC: SDC 09:41
PROVIDERS: ATTEND Surgery
DX: L02.11 Cutaneous abscess of neck (principal); L02.214 Cutaneous abscess of groin; L72.0 Epidermal cyst
CPT/HCPCS: 87070; 88304; 99100; J0690; J2250; J2704; J3010

== ENCOUNTER 2022-08-15 15:01 | Day surgery (SDC) | payer MEDICARE, OTHER ==
[2012-09-18 10:39] VITALS: BP 114/62
[2022-08-15] MEDS ORDERED: Sodium Chloride 0.9(Preservative Free) 10 ML IJ ONE (15:02)
[2022-08-15] MEDS ORDERED: Xylocaine 1% Vial 30 ML PF IJ ONE (15:02)
[2022-08-15] MEDS ORDERED: Depo-Medrol 40 MG/ML IM ONE (15:02)
--- NOTE | 2022-08-15 17:12 | XRAY ---
23 seconds of fluoroscopy was used in surgery for a caudal SUSANA.
--- NOTE | 2022-08-15 17:12 | XRAY ---
Indication: Caudal SUSANA. Intraoperative fluoroscopy provided for 23 seconds. 2 digital spot images submitted for interpretation demonstrates caudal needle tip projecting mid sacrum. Small amount of contrast injected for needle tip placement. Correlate with intraoperative findings/report. Incidental partially visualized aortobiiliac stent grafts.
== END 2022-08-15 17:20 | disposition home or self-care (01) ==
LOC: SDC-PAIN 15:01
PROVIDERS: ATTEND Psychiatry & Neurology Pain Medicine
DX: M54.16 Radiculopathy, lumbar region (principal); Z79.899 Other long term (current) drug therapy
CPT/HCPCS: 62323; 72220; 77003; J1030; J2001; Q9966

== ENCOUNTER 2025-06-21 10:32 | Observation (INO) | payer MEDICARE, OTHER ==
[2025-06-21 11:08] LABS: Hematocrit 37.6 % (40.1-51.0); Hemoglobin 12.4 g/dL (13.7-17.5); Mean Corpuscular Hemoglobin 31.2 pg (25.7-32.2); Mean Corpuscular Hgb Concent. 33.0 g/dL (32.3-36.5); Red Blood Count 3.98 x10^6/uL (4.63-6.08)
--- NOTE | 2025-06-21 11:14 | XRAY ---
Indication: Chest pain. Comparison: May 17, 2025 Portable chest again hyperinflated and now clear of infiltrate, consolidation, or large effusion. Heart not enlarged again with CABG and left pacemaker. Bony thorax intact again with osteopenia and mild degenerative changes. Impression: Nonacute chest with chronic features.
[2025-06-21 11:29] LABS: CK-Creatinine Phosphokinase 44.0 U/L (55-170); Calcium 8.2 mg/dL (8.4-10.2); Carbon Dioxide 25.0 mmol/L (22-30); Creatinine 1 0.99 mg/dL (0.66-1.25); EST GLOMERULAR FILTRATION RATE 74.7 ML/MIN; Glucose 117.0 mg/dL (74-106); NT PRO BNPII 1450.0 pg/mL (<300); Potassium 4.0 mmol/L (3.5-5.1); SGOT/AST 56.0 U/L (17-59); SGPT/ALT 34.0 U/L (0-50); Total Protein 6.1 g/dL (6.3-8.2)
[2025-06-21 11:33] LABS: White Blood Count 1.8 x10^3/uL (4.23-9.07)
[2025-06-21 11:42] LABS: Platelet Count 55 x10^3/uL (163-337)
[2025-06-21 11:43] LABS: Slide Review 1 NO
[2025-06-21] MEDS: NITRO-BID 2% UD PACKETS TOP ONE (11:44)
[2025-06-21 13:10] LABS: Total Cells Counted 100
[2025-06-21] MEDS: ENOXAPARIN SODIUM SQ SCH (14:11)
--- NOTE | 2025-06-21 15:46 | ERPHSYRPT ---
- History of Present Illness Time Seen by Provider: 06/21/25 10:45 Source: patient Patient Subjective Stated Complaint: Pt. states, "My chest hurts on the left side and into my back. It started today. I saw my lung doctor last week and he put me on antibiotic for lung infection, but I'm still coughing up yellow/brown stuff." Triage Nursing Assessment: Pt. arrives via EMS on stretcher, A&Ox3, Skin P/W/D, Resp. even unlabored, No edema, pt. is very [place], Productive cough noted with yellow/brown sputum. Timing/Duration: today Severity: mild Associated Symptoms: denies symptoms Allergies/Adverse Reactions: No Known Drug Allergies Allergy (Verified 06/12/21 06:28) Home Medications: Nitroglycerin 0.4 mg SL UD PRN 09/17/12 [History] Rosuvastatin Calcium [Crestor] 20 mg PO DAILY 09/17/12 [History] ALPRAZolam 0.5 MG [xanAX 0.5 MG] 0.5 mg PO HS 01/13/13 [History] Temazepam [Restoril] 30 mg PO HS 01/13/13 [History] Carvedilol [Coreg ] 12.5 mg PO BID 08/24/15 [History] Albuterol 2.5 mg/3 ml Neb [Proventil 2.5 mg/3 ml Neb] 2.5 mg IH Q4-6HPRN PRN 03/20/17 [History] Budesonide/Formoterol Fumarate [Symbicort 160-4.5 Mcg Inhaler] 6 gm IH DAILY 03/20/17 [History] Lisinopril 20 mg [Zestril 20 MG] 5 mg PO DAILY 03/20/17 [History] Potassium Chloride 20 Meq [Klor-Con 20 MEQ] 20 meq PO DAILY PRN PRN 03/20/17 [History] Amiodarone HCl 200 mg [Cordarone 200 MG] 200 mg PO DAILY 06/12/21 [History] Amlodipine Besylate 5 mg [Norvasc 5 mg] 2.5 mg PO DAILY 06/12/21 [History] Hx Tetanus, Diphtheria Vaccination/Date Given: Yes Hx Influenza Vaccination/Date Given: No Hx Pneumococcal Vaccination/Date Given: Yes Travel Risk - International Travel Have you traveled outside of the country in past 3 weeks: No - Emerging Infectious Disease Are you exhibiting symptoms associated with any current EIDs: No - Review of Systems Constitutional: No Symptoms Eyes: No Symptoms Ears, Nose, & Throat: No Symptoms Respiratory: No Symptoms Cardiac: No Symptoms, Chest Pain Abdominal/Gastrointestinal: No Symptoms Genitourinary Symptoms: No Symptoms Musculoskeletal: No Symptoms Skin: No Symptoms Neurological: No Symptoms Psychological: No Symptoms - Past Medical History Pertinent Past Medical History: Yes Neurological History: No Pertinent History ENT History: Cataracts Cardiac History: Coronary Artery Disease, High Cholesterol, Hypertension, Myocardial Infarction ([place]) Respiratory History: No Pertinent History Endocrine Medical History: Other Musculoskeletal History: Degenerative Disk Disease, Osteoarthritis GI Medical History: Diverticulitis, Diverticulosis History: No Pertinent History Psycho-Social History: Anxiety Male Reproductive Disorders: Prostate Cancer Other Medical History: PROSTATE CA WITH PROSTECTOMY, AAA WITH AORTOBIILIAC STENT, SPINAL STENOSIS, BULGING DISCS L3-5 (CT 2021),. HX LEFT SHOULDER ROTATOR CUFF REPAIR AND LEFT KNEE ARTHROSCOPY 18 YEARS AGO TO "CLEAN IT OUT". PACEMAKER - Past Surgical History Past Surgical History: Yes Neuro Surgical History: No Pertinent History Cardiac: CABG, Cardiac Catheterization, Cardiac Stent, Pacemaker Respiratory: No Pertinent History Gastrointestinal: Hernia Repair Genitourinary: No Pertinent History Musculoskeletal: Orthopedic Surgery Male Surgical History: Prostate Surgery, Vasectomy Other Surgical History: left shoulder reconstructioncyst from tail bone and neck, cyst removed from neck, colonoscopy - Social History Smoking Status: Never smoker Exposure to second hand smoke: No Drug Use: none - Social Determinants of Health Will the patient participate in the screening: Declined to provide - Nursing Vital Signs Nursing Vital Signs: Initial Vital Signs Temperature 99.9 F 06/21/25 10:33 Pulse Rate 84 06/21/25 10:33 Respiratory Rate 18 06/21/25 10:33 Blood Pressure 126/62 06/21/25 10:33 O2 Sat by Pulse Oximetry 97 06/21/25 10:33 Pain Scale Pain Intensity 0 - Physical Exam General Appearance: no apparent distress Eye Exam: PERRL/EOMI Ears, Nose, Throat Exam: normal ENT inspection Respiratory Exam: normal breath sounds Cardiovascular Exam: regular rate/rhythm Gastrointestinal/Abdomen Exam: soft, normal bowel sounds Neurologic Exam: alert, oriented x 3 SpO2: 100 Ordered Tests: Active Orders 24 hr Category Date Time Status CHEST 1 VIEW (PORTABLE) Stat Exams 06/21/25 11:06 Completed AMYLASE Stat Lab 06/21/25 11:00 Completed CBC W DIFF Stat Lab 06/21/25 11:00 Results CK-Creatinine Phosphokinase Stat Lab 06/21/25 11:00 Completed CMP Stat Lab 06/21/25 11:00 Completed LIPASE Stat Lab 06/21/25 11:00 Completed Manual Differential NC Stat Lab 06/21/25 11:00 Results NT PRO BNPII Stat Lab 06/21/25 11:00 Completed Pathologist Review Stat Lab 06/21/25 11:00 Results TROPONIN Q4H Lab 06/21/25 11:00 Completed TROPONIN Q4H Lab 06/21/25 14:05 Completed TROPONIN Q4H Lab 06/21/25 19:00 Ordered Medication Summary Generic Name Dose Route Start Last Admin Trade Name Freq PRN Reason Stop Dose Admin Enoxaparin Sodium 100 mg 06/21/25 13:45 06/21/25 14:11 Enoxaparin Sodium 100 Mg/Ml Syringe 1 mg/kg (100 mg) 07/21/25 13:44 100 mg SQ Administration Q24H SAMUEL Discontinued Medications Generic Name Dose Route Start Last Admin Trade Name Freq PRN Reason Stop Dose Admin Nitroglycerin 1 gm 06/21/25 10:51 06/21/25 11:44 Nitroglycerin 1 Gm Packet TOP 06/21/25 10:52 Not Given STAT ONE Lab/Rad Data: Laboratory Result Diagrams 06/21/25 11:00 06/21/25 11:00 Laboratory Results 06/21/25 06/21/25 06/21/25 Range/Units 14:05 11:00 11:00 WBC (4.23-9.07) x10^3/uL RBC (4.63-6.08) x10^6/uL Hgb (13.7-17.5) g/dL Hct (40.1-51.0) % MCV (79.0-92.2) fL MCH (25.7-32.2) pg MCHC (32.3-36.5) g/dL RDW (11.6-14.4) % Plt Count (163-337) x10^3/uL MPV (9.4-12.4) fL Segmented Neutrophils (34.0-67.9) % Lymphocytes (Manual) (21.8-53.1) % Monocytes (Manual) (5.3-12.2) % Platelet Estimate (NORMAL) Smear Path Review Sodium 130 L (135-145) mmol/L Potassium 4.0 (3.5-5.1) mmol/L Chloride 100 (98-107) mmol/L Carbon Dioxide 25 (22-30) mmol/L Anion Gap 8.3 (5-15) MEQ/L BUN 21 H (9-20) mg/dL Creatinine 0.99 (0.66-1.25) mg/dL Estimated GFR 74.7 ML/MIN Glucose 117 H (74-106) mg/dL Calcium 8.2 L (8.4-10.2) mg/dL Total Bilirubin 0.50 (0.2-1.3) mg/dL AST 56 (17-59) U/L ALT 34 (0-50) U/L Alkaline Phosphatase 68 (38-126) U/L Creatine Kinase 44 L (55-170) U/L Troponin I 0.066 H* 0.083 H* (0.000-0.033) ng/mL NT-Pro-B Natriuret Pep 1450 (<300) pg/mL Serum Total Protein 6.1 L (6.3-8.2) g/dL Albumin 3.4 L (3.5-5.0) g/dL Amylase 121 H (30-110) U/L Lipase 106 (23-300) U/L Slides for Path Review 06/21/25 Range/Units 11:00 WBC 1.8 L* (4.23-9.07) x10^3/uL RBC 3.98 L (4.63-6.08) x10^6/uL Hgb 12.4 L (13.7-17.5) g/dL Hct 37.6 L (40.1-51.0) % MCV 94.5 H (79.0-92.2) fL MCH 31.2 (25.7-32.2) pg MCHC 33.0 (32.3-36.5) g/dL RDW 13.6 (11.6-14.4) % Plt Count 55 L (163-337) x10^3/uL MPV 11.9 (9.4-12.4) fL Segmented Neutrophils 51 (34.0-67.9) % Lymphocytes (Manual) 44 (21.8-53.1) % Monocytes (Manual) 5 L (5.3-12.2) % Platelet Estimate DECREASED (NORMAL) Smear Path Review Pending Sodium (135-145) mmol/L Potassium (3.5-5.1) mmol/L Chloride (98-107) mmol/L Carbon Dioxide (22-30) mmol/L Anion Gap (5-15) MEQ/L BUN (9-20) mg/dL Creatinine (0.66-1.25) mg/dL Estimated GFR ML/MIN Glucose (74-106) mg/dL Calcium (8.4-10.2) mg/dL Total Bilirubin (0.2-1.3) mg/dL AST (17-59) U/L ALT (0-50) U/L Alkaline Phosphatase (38-126) U/L Creatine Kinase (55-170) U/L Troponin I (0.000-0.033) ng/mL NT-Pro-B Natriuret Pep (<300) pg/mL Serum Total Protein (6.3-8.2) g/dL Albumin (3.5-5.0) g/dL Amylase (30-110) U/L Lipase (23-300) U/L Slides for Path Review NO - Progress Progress Note: Patient was seen and evaluated for complaints of chest pain chest pain protocol was initiated, patient took aspirin prior to coming in. Nitroglycerin was ordered. I informed the patient with his results of his lab work he prefers to be admitted to [facility] I spoke to the melt down furnace operator on-call Dr. murry. He informed me that the patient had a negative cath and minimal disease in all 4 vessels status post CABG. he recommends that the patient stay here at [facility] and trend his troponin. He wants the patient to receive Lovenox 1 mg/kg. The melt down furnace operator did inform me that the patient has a history of elevated troponin in the past. patient was updated with the plan and is agreeable. There is an improvement of his troponin upon repeat testing. I spoke to the hospitalist on-call he will admit the patient he was updated with that discussion with a melt down furnace operator at [facility] he was updated with the patient's lab results. Patient and family have no further questions at this time 06/21/25 15:40 Discussed with : Amilcar Will see patient in: hospital (observation) Medical Desision Making - Discussion of managment Care discussed with:: hospitalist Agreed on:: decision to admit, place in obs Will see patient: in hospital - Departure Departure Disposition: Observation Clinical Impression: Chest pain Condition: Stable Critical Care Time: No Referrals: ABBEY MARS MD [Primary Care Provider, [facility]] - Follow up/PCP as directed
--- NOTE | 2025-06-21 16:39 | PCM.HP ---
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 The patient reported left-sided chest pain radiating into his back that began earlier today. He stated, My chest hurts on the left side and into my back. It started today. I saw my lung doctor last week and he put me on an antibiotic for a lung infection, but Im still coughing up yellow/brown sputum. Per pt's he had low BP at home and has not been eating and drinking well for 2-3 days. He only took 1 day of Levaquin and stopped it as he states it made him feel bad. On arrival, he was saturating 100% on room air. Chest X-ray showed no acute findings. Sputum culture is pending. Lung sounds coarse and will start pt on IV antibiotics for COPD exacerbation. He had taken aspirin prior to arrival, and nitroglycerin paste was applied in the ED. Serial troponins were elevated but trending down. Cardiology was consulted for further evaluation and management. BP stable on admission. - Review of Systems Constitutional: Fatigue, Weakness, No Fever, No Chills Eyes: No Symptoms Ears, Nose, & Throat: No Symptoms Respiratory: Short Of Breath, No Cough Cardiac: Chest Pain, No Edema, No Syncope Abdominal/Gastrointestinal: No Abdominal Pain, No Nausea, No Vomiting, No Diarrhea Genitourinary Symptoms: No Dysuria Musculoskeletal: No Back Pain, No Neck Pain Skin: No Rash Neurological: No Dizziness, No Focal Weakness, No Sensory Changes Psychological: No Symptoms Endocrine: No Symptoms Hematologic/Lymphatic: No Symptoms Immunological/Allergic: No Symptoms Medications & Allergies Home Medications: Home Medication List Nitroglycerin 0.4 mg SL UD PRN 09/17/12 [History Confirmed 06/21/25] Rosuvastatin Calcium [Crestor] 20 mg PO DAILY 09/17/12 [History Confirmed 06/21/25] ALPRAZolam 0.5 MG [xanAX 0.5 MG] 0.5 mg PO HS 01/13/13 [History Confirmed 06/21/25] Temazepam [Restoril] 30 mg PO HS 01/13/13 [History Confirmed 06/21/25] Carvedilol [Coreg ] 12.5 mg PO BID 08/24/15 [History Confirmed 06/21/25] Albuterol 2.5 mg/3 ml Neb [Proventil 2.5 mg/3 ml Neb] 2.5 mg IH Q4-6HPRN PRN 03/20/17 [History Confirmed 06/21/25] Budesonide/Formoterol Fumarate [Symbicort 160-4.5 Mcg Inhaler] 6 gm IH DAILY 03/20/17 [History Confirmed 06/21/25] Lisinopril 20 mg [Zestril 20 MG] 5 mg PO DAILY 03/20/17 [History Confirmed 06/21/25] Potassium Chloride 20 Meq [Klor-Con 20 MEQ] 20 meq PO DAILY PRN PRN 03/20/17 [History Confirmed 06/21/25] Amiodarone HCl 200 mg [Cordarone 200 MG] 200 mg PO DAILY 06/12/21 [History Confirmed 06/21/25] Amlodipine Besylate 5 mg [Norvasc 5 mg] 2.5 mg PO DAILY 06/12/21 [History Confirmed 06/21/25] Digoxin 0.125 mg Tablet [Lanoxin 0.125MG TABLET] 0.125 mg PO DAILY 06/21/25 [History Confirmed 06/21/25] Sacubitril/Valsartan [Entresto 49 mg-51 mg Tablet] 1 tab PO BID 06/21/25 [History Confirmed 06/21/25] Allergies/Adverse Reactions: Allergies Allergy/AdvReac Type Severity Reaction Status Date / Time No Known Drug Allergies Allergy Verified 06/21/25 16:52 - Past Medical History Past Medical History: Yes Neurological History: No Pertinent History ENT History: Cataracts Cardiac History: Coronary Artery Disease, High Cholesterol, Hypertension, Myocardial Infarction (ME) Respiratory History: No Pertinent History, COPD Endocrine Medical History: Other Musculoskelatal History: Degenerative Disk Disease, Osteoarthritis GI Medical History: Diverticulitis, Diverticulosis History: No Pertinent History Pyscho-Social History: Anxiety Male Reproductive Disorders: Prostate Cancer Comment: PROSTATE CA WITH PROSTECTOMY, AAA WITH AORTOBIILIAC STENT, SPINAL STENOSIS, BULGING DISCS L3-5 (CT 2021),. HX LEFT SHOULDER ROTATOR CUFF REPAIR AND LEFT KNEE ARTHROSCOPY 18 YEARS AGO TO "CLEAN IT OUT". PACEMAKER - Past Surgical History Past Surgical History: Yes Neuro Surgical History: No Pertinent History Cardiac History: CABG, Cardiac Catheterization, Cardiac Stent, Pacemaker Respiratory Surgery: No Pertinent History GI Surgical History: Hernia Repair Genitourinary Surgical Hx: No Pertinent History Musculskeletal Surgical Hx: Orthopedic Surgery Male Surgical History: Prostate Surgery, Vasectomy Other Surgical History: left shoulder reconstructioncyst from tail bone and neck, cyst removed from neck, colonoscopy Significant Family History: no pertinent family hx - Social History Smoking Status: Never smoker How long have you smoked: 40yrs Exposure to second hand smoke: No Alcohol: None Drug Use: none - Social Determinants of Health Will the patient participate in the screening: Declined to provide - Physical Exam Vital Signs: Vital Signs - 24 hr Temp Pulse Pulse Resp BP BP Pulse Ox 06/21/25 15:48 100 06/21/25 15:03 69 13 120/61 100 06/21/25 15:01 72 18 110/66 100 06/21/25 14:30 120/70 99 06/21/25 14:00 105/65 100 06/21/25 13:31 75 16 108/72 100 06/21/25 13:29 100 06/21/25 13:20 100 06/21/25 13:10 100 06/21/25 13:02 98 06/21/25 12:30 121/64 98 06/21/25 12:00 76 19 117/64 99 06/21/25 11:30 72 22 110/52 98 06/21/25 11:00 74 20 106/47 99 06/21/25 10:38 75 19 126/62 98 06/21/25 10:33 99.9 F 84 78 18 126/62 97 General Appearance: no apparent distress, alert Neurologic Exam: alert, oriented x 3, cooperative, normal mood/affect, nml cerebellar function, nml station & gait, sensation nml, No motor deficits Eye Exam: PERRL/EOMI, eyes nml inspection Ears, Nose, Throat Exam: normal ENT inspection, TMs normal, pharynx normal, moist mucous membranes Neck Exam: normal inspection, non-tender, supple, full range of motion Respiratory Exam: rhonchi, No respiratory distress Cardiovascular Exam: regular rate/rhythm, normal heart sounds, normal peripheral pulses Gastrointestinal/Abdomen Exam: soft, normal bowel sounds, No tenderness, No mass Back Exam: normal inspection, normal range of motion, No CVA tenderness, No vertebral tenderness Extremity Exam: normal inspection, normal range of motion, pelvis stable Skin Exam: normal color, warm, dry, No rash Lymphatic Exam: No adenopathy Results - Labs Lab/Micro Results: Lab Results-Last 24 Hours 06/21/25 06/21/25 06/21/25 Range/Units 11:00 11:00 11:00 WBC 1.8 L* (4.23-9.07) x10^3/uL RBC 3.98 L (4.63-6.08) x10^6/uL Hgb 12.4 L (13.7-17.5) g/dL Hct 37.6 L (40.1-51.0) % MCV 94.5 H (79.0-92.2) fL MCH 31.2 (25.7-32.2) pg MCHC 33.0 (32.3-36.5) g/dL RDW 13.6 (11.6-14.4) % Plt Count 55 L (163-337) x10^3/uL MPV 11.9 (9.4-12.4) fL Segmented Neutrophils 51 (34.0-67.9) % Lymphocytes (Manual) 44 (21.8-53.1) % Monocytes (Manual) 5 L (5.3-12.2) % Platelet Estimate DECREASED (NORMAL) Smear Path Review Pending Sodium 130 L (135-145) mmol/L Potassium 4.0 (3.5-5.1) mmol/L Chloride 100 (98-107) mmol/L Carbon Dioxide 25 (22-30) mmol/L Anion Gap 8.3 (5-15) MEQ/L BUN 21 H (9-20) mg/dL Creatinine 0.99 (0.66-1.25) mg/dL Estimated GFR 74.7 ML/MIN Glucose 117 H (74-106) mg/dL Calcium 8.2 L (8.4-10.2) mg/dL Total Bilirubin 0.50 (0.2-1.3) mg/dL AST 56 (17-59) U/L ALT 34 (0-50) U/L Alkaline Phosphatase 68 (38-126) U/L Creatine Kinase 44 L (55-170) U/L Troponin I 0.083 H* (0.000-0.033) ng/mL NT-Pro-B Natriuret Pep 1450 (<300) pg/mL Serum Total Protein 6.1 L (6.3-8.2) g/dL Albumin 3.4 L (3.5-5.0) g/dL Amylase 121 H (30-110) U/L Lipase 106 (23-300) U/L Slides for Path Review NO 06/21/25 Range/Units 14:05 WBC (4.23-9.07) x10^3/uL RBC (4.63-6.08) x10^6/uL Hgb (13.7-17.5) g/dL Hct (40.1-51.0) % MCV (79.0-92.2) fL MCH (25.7-32.2) pg MCHC (32.3-36.5) g/dL RDW (11.6-14.4) % Plt Count (163-337) x10^3/uL MPV (9.4-12.4) fL Segmented Neutrophils (34.0-67.9) % Lymphocytes (Manual) (21.8-53.1) % Monocytes (Manual) (5.3-12.2) % Platelet Estimate (NORMAL) Smear Path Review Sodium (135-145) mmol/L Potassium (3.5-5.1) mmol/L Chloride (98-107) mmol/L Carbon Dioxide (22-30) mmol/L Anion Gap (5-15) MEQ/L BUN (9-20) mg/dL Creatinine (0.66-1.25) mg/dL Estimated GFR ML/MIN Glucose (74-106) mg/dL Calcium (8.4-10.2) mg/dL Total Bilirubin (0.2-1.3) mg/dL AST (17-59) U/L ALT (0-50) U/L Alkaline Phosphatase (38-126) U/L Creatine Kinase (55-170) U/L Troponin I 0.066 H* (0.000-0.033) ng/mL NT-Pro-B Natriuret Pep (<300) pg/mL Serum Total Protein (6.3-8.2) g/dL Albumin (3.5-5.0) g/dL Amylase (30-110) U/L Lipase (23-300) U/L Slides for Path Review - Radiology Impressions Radiology Exams & Impressions: Radiology Procedures Category Date Time Status CHEST 1 VIEW (PORTABLE) Stat Exams 06/21/25 11:06 Completed Assessment/Plan (1) COPD exacerbation Current Visit: Yes Status: Acute Assessment & Plan: - Zosyn, duonebs, advair, steroids. - Wean O2 keep sat > 92% - Sputum sample pending - CBC, CMP pending - CXR reviewed Code(s): J44.1 - CHRONIC OBSTRUCTIVE PULMONARY DISEASE W (ACUTE) EXACERBATION (2) Chest pain Current Visit: Yes Status: Acute Assessment & Plan: - Trend trops x3, trops x2 trending down - CXR negative for acute concern - CBC, CMP reviewed - Nitropaste started in ER - Cardiology consult - EKG - Tele Code(s): R07.9 - CHEST PAIN, UNSPECIFIED (3) Syncope Current Visit: Yes Status: Acute Assessment & Plan: - 2:2 COPD exacerbation?- see plan - Not eating and drinking well - TSH - IVF Code(s): R55 - SYNCOPE AND COLLAPSE (4) Pancytopenia Current Visit: Yes Status: Acute Assessment & Plan: - Trend labs - Iron panel Code(s): D61.818 - OTHER PANCYTOPENIA (5) CAD (coronary artery disease) Current Visit: No Status: Chronic Assessment & Plan: - With hx of CABD and pacemaker - Tele - Continue home meds - Follows cardiology at [facility] Code(s): I25.10 - ATHSCL HEART DISEASE OF [place] CORONARY ARTERY W/O ANG PCTRS (6) HTN (hypertension) Current Visit: Yes Status: Chronic Assessment & Plan: - BP stable - Continue home meds Code(s): I10 - ESSENTIAL (PRIMARY) HYPERTENSION (7) Dyspnea Current Visit: Yes Status: Acute Qualifiers: Dyspnea type: shortness of breath Qualified Code(s): R06.02 - Shortness of breath; R06.00 - Dyspnea, unspecified; R06.01 - Orthopnea Assessment & Plan: - RA 100% - CXR negative for acute concern - Coughing up brown sputum per pt. - Sputum sample pending - Completed OP antibiotics - CBC, CMP reviewed Code(s): R06.00 - DYSPNEA, UNSPECIFIED (8) Hyperlipidemia Current Visit: Yes Status: Chronic Assessment & Plan: - Continue statin Code(s): E78.5 - HYPERLIPIDEMIA, UNSPECIFIED (9) Insomnia Current Visit: Yes Status: Chronic Assessment & Plan: - Continue Restoril Code(s): G47.00 - INSOMNIA, UNSPECIFIED (10) Anxiety Current Visit: Yes Status: Chronic Assessment & Plan: - Continue home med VTE: SCD's Next of KIN: Spouse- Sindi D/C plan: tomorrow Code status: Full Plan of care time: > 45 minutes Code(s): F41.9 - ANXIETY DISORDER, UNSPECIFIED Telemedicine Encounter - Telemedicine Encounter Telemedicine Encounter: "The entirety of this encounter was performed via Telemedicine" This visit was performed using real-time audio and video connection between my location and thepatients locationwith the assistance of a surrogateat the patients location. Written or verbal consent was obtained from the patient/guardian to perform this visit [facility] technology. Any patient questions regarding the telemedicine interaction were answered.
[2025-06-21] MEDS ORDERED: PROVENTIL 2.5 MG/3 ML NEB IH PRN (16:54)
[2025-06-21] MEDS ORDERED: Klor Con PO PRN (17:07)
[2025-06-21] MEDS ORDERED: MEDICATION INTERVENTION MC SCH (17:15)
[2025-06-21] MEDS ORDERED: Xopenex 1.25 MG/0.5 ML UD NEBULE IH PRN (17:30)
[2025-06-21] MEDS: Advair Hfa 230/21 Mcg COMMON CANISTER IH SCH (17:58)
[2025-06-21] MEDS: PROVENTIL 2.5 MG/3 ML NEB IH SCH (17:58)
[2025-06-21] MEDS: NORVASC 5 MG PO SCH (18:08)
[2025-06-21] MEDS: Zestril 5 MG PO SCH (18:08)
[2025-06-21] MEDS: Cordarone 200 MG PO SCH (18:08)
[2025-06-21] MEDS: ZOCOR 20MG PO SCH (18:08)
[2025-06-21] MEDS: Lanoxin 0.125MG TABLET PO SCH (18:08)
[2025-06-21 18:37] LABS: Iron 69 ug/dL (49-181); TIBC 254 ug/dL (261-497)
[2025-06-21] MEDS ORDERED: Advair Hfa 230/21 Mcg COMMON CANISTER IH SCH ×2 (19:00)
[2025-06-21 19:37] LABS: Ferritin 328.0 ng/mL (17.9-464)
[2025-06-21] MEDS: Restoril 15 MG PO SCH (22:02)
[2025-06-21] MEDS: ENTRESTO 49 MG-51 MG TABLET PO SCH (22:02)
[2025-06-21] MEDS: COREG 12.5 MG PO SCH (22:02)
[2025-06-21] MEDS: DELTASONE 20 MG PO SCH (22:02)
[2025-06-21] MEDS: xanAX 0.5 MG PO SCH (22:02)
[2025-06-22 05:05] LABS: Hematocrit 37.0 % (40.1-51.0); Hemoglobin 12.1 g/dL (13.7-17.5); Mean Corpuscular Hemoglobin 30.6 pg (25.7-32.2); Mean Corpuscular Hgb Concent. 32.7 g/dL (32.3-36.5); Platelet Count 53 x10^3/uL (163-337); Red Blood Count 3.96 x10^6/uL (4.63-6.08)
[2025-06-22 05:11] LABS: White Blood Count 1.5 x10^3/uL (4.23-9.07)
[2025-06-22 05:31] LABS: Calcium 8.0 mg/dL (8.4-10.2); Carbon Dioxide 24.0 mmol/L (22-30); Creatinine 1 0.83 mg/dL (0.66-1.25); EST GLOMERULAR FILTRATION RATE 85.8 ML/MIN; Glucose 138.0 mg/dL (74-106); Potassium 3.9 mmol/L (3.5-5.1); SGOT/AST 48.0 U/L (17-59); SGPT/ALT 32.0 U/L (0-50); Total Protein 5.8 g/dL (6.3-8.2)
[2025-06-22 05:43] LABS: Slide Review YES
[2025-06-22] MEDS: Spiriva 18 Mcg/Cap Inhaler IH SCH (07:30)
[2025-06-22 08:06] VITALS: RESP 20; TEMP 97.9
--- NOTE | 2025-06-22 09:36 | PCM.DS ---
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 He reported poor oral intake and low blood pressure at home over the prior 23 days and admitted to discontinuing Levaquin after one day due to intolerance, despite being prescribed for a lung infection. On arrival, he was saturating 100% on room air, chest X-ray revealed no acute findings, and lung sounds were coarse. He was started on IV antibiotics for COPD exacerbation, and sputum culture was obtained. He had taken aspirin prior to arrival, nitroglycerin paste was applied in the ED, and serial troponins were elevated but trending down. Cardiology was consulted for further management, and his blood pressure remained stable. By 06/22/25, the patient reported feeling much improved, denying chest pain and shortness of breath, with clear lungs and oxygen saturation of 97% on room air. He demonstrated increased strength and mobility compared to admission. Pending cardiology recommendations and urinalysis, discharge is anticipated with outpatient follow-up arranged for cardiology and primary care evaluation of pancytopenia. He will be discharged on antibiotics and steroids for COPD exacerbation. - Vitals & Intake/Output Vital Signs: Vital Signs Temperature 97.9 F 06/22/25 08:00 Pulse Rate 74 06/22/25 08:00 Respiratory Rate 20 06/22/25 08:00 Blood Pressure 124/74 06/22/25 08:00 O2 Sat by Pulse Oximetry 97 06/22/25 08:00 Intake & Output: Intake & Output 06/19/25 06/20/25 06/21/25 06/22/25 11:59 11:59 11:59 11:59 Intake Total 1454 Output Total 580 Balance 874 Weight 101.2 kg 95.3 kg - Lab Result Diagrams: 06/22/25 04:32 06/22/25 04:32 Lab Results-Last 24 Hrs: Lab Results-Last 24 Hours 06/21/25 06/21/25 06/21/25 Range/Units 11:00 11:00 11:00 WBC 1.8 L* (4.23-9.07) x10^3/uL RBC 3.98 L (4.63-6.08) x10^6/uL Hgb 12.4 L (13.7-17.5) g/dL Hct 37.6 L (40.1-51.0) % MCV 94.5 H (79.0-92.2) fL MCH 31.2 (25.7-32.2) pg MCHC 33.0 (32.3-36.5) g/dL RDW 13.6 (11.6-14.4) % Plt Count 55 L (163-337) x10^3/uL MPV 11.9 (9.4-12.4) fL Segmented Neutrophils 51 (34.0-67.9) % Lymphocytes (Manual) 44 (21.8-53.1) % Monocytes (Manual) 5 L (5.3-12.2) % Platelet Estimate DECREASED (NORMAL) Smear Path Review Pending Sodium 130 L (135-145) mmol/L Potassium 4.0 (3.5-5.1) mmol/L Chloride 100 (98-107) mmol/L Carbon Dioxide 25 (22-30) mmol/L Anion Gap 8.3 (5-15) MEQ/L BUN 21 H (9-20) mg/dL Creatinine 0.99 (0.66-1.25) mg/dL Estimated GFR 74.7 ML/MIN Glucose 117 H (74-106) mg/dL Calcium 8.2 L (8.4-10.2) mg/dL Iron (49-181) ug/dL TIBC (261-497) ug/dL Iron Saturation (20-39) % Ferritin (17.9-464) ng/mL Total Bilirubin 0.50 (0.2-1.3) mg/dL AST 56 (17-59) U/L ALT 34 (0-50) U/L Alkaline Phosphatase 68 (38-126) U/L Creatine Kinase 44 L (55-170) U/L Troponin I 0.083 H* (0.000-0.033) ng/mL NT-Pro-B Natriuret Pep 1450 (<300) pg/mL Serum Total Protein 6.1 L (6.3-8.2) g/dL Albumin 3.4 L (3.5-5.0) g/dL Amylase 121 H (30-110) U/L Lipase 106 (23-300) U/L Vitamin B12 (239-931) pg/mL Folic Acid (2.76 - >20) ng/mL TSH 3rd Generation (0.470-4.680) mIU/L Slides for Path Review NO 06/21/25 06/21/25 06/21/25 Range/Units 11:00 11:00 14:05 WBC (4.23-9.07) x10^3/uL RBC (4.63-6.08) x10^6/uL Hgb (13.7-17.5) g/dL Hct (40.1-51.0) % MCV (79.0-92.2) fL MCH (25.7-32.2) pg MCHC (32.3-36.5) g/dL RDW (11.6-14.4) % Plt Count (163-337) x10^3/uL MPV (9.4-12.4) fL Segmented Neutrophils (34.0-67.9) % Lymphocytes (Manual) (21.8-53.1) % Monocytes (Manual) (5.3-12.2) % Platelet Estimate (NORMAL) Smear Path Review Sodium (135-145) mmol/L Potassium (3.5-5.1) mmol/L Chloride (98-107) mmol/L Carbon Dioxide (22-30) mmol/L Anion Gap (5-15) MEQ/L BUN (9-20) mg/dL Creatinine (0.66-1.25) mg/dL Estimated GFR ML/MIN Glucose (74-106) mg/dL Calcium (8.4-10.2) mg/dL Iron 69 (49-181) ug/dL TIBC 254 L (261-497) ug/dL Iron Saturation 27 (20-39) % Ferritin 328 (17.9-464) ng/mL Total Bilirubin (0.2-1.3) mg/dL AST (17-59) U/L ALT (0-50) U/L Alkaline Phosphatase (38-126) U/L Creatine Kinase (55-170) U/L Troponin I 0.066 H* (0.000-0.033) ng/mL NT-Pro-B Natriuret Pep (<300) pg/mL Serum Total Protein (6.3-8.2) g/dL Albumin (3.5-5.0) g/dL Amylase (30-110) U/L Lipase (23-300) U/L Vitamin B12 366 (239-931) pg/mL Folic Acid 12.2 (2.76 - >20) ng/mL TSH 3rd Generation (0.470-4.680) mIU/L Slides for Path Review 06/21/25 06/22/25 06/22/25 Range/Units 19:10 04:32 04:32 WBC 1.5 L* (4.23-9.07) x10^3/uL RBC 3.96 L (4.63-6.08) x10^6/uL Hgb 12.1 L (13.7-17.5) g/dL Hct 37.0 L (40.1-51.0) % MCV 93.4 H (79.0-92.2) fL MCH 30.6 (25.7-32.2) pg MCHC 32.7 (32.3-36.5) g/dL RDW 13.5 (11.6-14.4) % Plt Count 53 L (163-337) x10^3/uL MPV 11.1 (9.4-12.4) fL Segmented Neutrophils (34.0-67.9) % Lymphocytes (Manual) (21.8-53.1) % Monocytes (Manual) (5.3-12.2) % Platelet Estimate (NORMAL) Smear Path Review Sodium 134 L (135-145) mmol/L Potassium 3.9 (3.5-5.1) mmol/L Chloride 104 (98-107) mmol/L Carbon Dioxide 24 (22-30) mmol/L Anion Gap 10.2 (5-15) MEQ/L BUN 18 (9-20) mg/dL Creatinine 0.83 (0.66-1.25) mg/dL Estimated GFR 85.8 ML/MIN Glucose 138 H (74-106) mg/dL Calcium 8.0 L (8.4-10.2) mg/dL Iron (49-181) ug/dL TIBC (261-497) ug/dL Iron Saturation (20-39) % Ferritin (17.9-464) ng/mL Total Bilirubin 0.40 (0.2-1.3) mg/dL AST 48 (17-59) U/L ALT 32 (0-50) U/L Alkaline Phosphatase 73 (38-126) U/L Creatine Kinase (55-170) U/L Troponin I 0.062 H* (0.000-0.033) ng/mL NT-Pro-B Natriuret Pep (<300) pg/mL Serum Total Protein 5.8 L (6.3-8.2) g/dL Albumin 3.2 L (3.5-5.0) g/dL Amylase (30-110) U/L Lipase (23-300) U/L Vitamin B12 (239-931) pg/mL Folic Acid (2.76 - >20) ng/mL TSH 3rd Generation (0.470-4.680) mIU/L Slides for Path Review YES 06/22/25 Range/Units 04:32 WBC (4.23-9.07) x10^3/uL RBC (4.63-6.08) x10^6/uL Hgb (13.7-17.5) g/dL Hct (40.1-51.0) % MCV (79.0-92.2) fL MCH (25.7-32.2) pg MCHC (32.3-36.5) g/dL RDW (11.6-14.4) % Plt Count (163-337) x10^3/uL MPV (9.4-12.4) fL Segmented Neutrophils (34.0-67.9) % Lymphocytes (Manual) (21.8-53.1) % Monocytes (Manual) (5.3-12.2) % Platelet Estimate (NORMAL) Smear Path Review Sodium (135-145) mmol/L Potassium (3.5-5.1) mmol/L Chloride (98-107) mmol/L Carbon Dioxide (22-30) mmol/L Anion Gap (5-15) MEQ/L BUN (9-20) mg/dL Creatinine (0.66-1.25) mg/dL Estimated GFR ML/MIN Glucose (74-106) mg/dL Calcium (8.4-10.2) mg/dL Iron (49-181) ug/dL TIBC (261-497) ug/dL Iron Saturation (20-39) % Ferritin (17.9-464) ng/mL Total Bilirubin (0.2-1.3) mg/dL AST (17-59) U/L ALT (0-50) U/L Alkaline Phosphatase (38-126) U/L Creatine Kinase (55-170) U/L Troponin I (0.000-0.033) ng/mL NT-Pro-B Natriuret Pep (<300) pg/mL Serum Total Protein (6.3-8.2) g/dL Albumin (3.5-5.0) g/dL Amylase (30-110) U/L Lipase (23-300) U/L Vitamin B12 (239-931) pg/mL Folic Acid (2.76 - >20) ng/mL TSH 3rd Generation 0.761 (0.470-4.680) mIU/L Slides for Path Review - Radiology Exams Ordered Rad Exams-Entire Visit: Radiology Procedures Category Date Time Status CHEST 1 VIEW (PORTABLE) Stat Exams 06/21/25 11:06 Completed - Procedures and Test Procedures and Tests throughout Hospitalization: Therapy Orders & Screens 06/21/25 17:23 OT Screen per Nursing Assess ONCE Comment: Protocol Order Physician Instructions: Greater than 3 points order OT Admission Screening Reason For Exam: Triggered on Admission Diagnosis: chest pain Open Wound/Cellutlitis/Pressure Ulcers: No Acute Fx/ORIF/Change in wt bearing status: No Severe MUSCULOSKELETAL pain: No ADL Dysfunction: Yes Acute CVA w/Hemiparesis/Hemiplegia: No Decreased Functional Mobility/Strength: Yes Sprain/Strain: No Acute Post-op Mobility Dysfunction: No Total Points: 4 PT Screen per Nursing Assess ONCE Comment: Protocol Order Physician Instructions: Greater than 3 points order PT Admission Screenin Reason For Exam: Triggered on Admission Diagnosis: chest pain Open Wound/Cellutlitis/Pressure Ulcers: No Acute Fx/ORIF/Change in wt bearing status: No Severe MUSCULOSKELETAL pain: No ADL Dysfunction: Yes Acute CVA w/Hemiparesis/Hemiplegia: No Decreased Functional Mobility/Strength: Yes Sprain/Strain: No Acute Post-op Mobility Dysfunction: No Total Points: 4 06/21/25 17:33 Respiratory Therapy Assessment DAILY Comment: Diagnosis: chest pain 06/21/25 17:34 Respiratory MDI BID Comment: Diagnosis: chest pain 06/21/25 17:57 Respiratory MDI BID Comment: Diagnosis: chest pain 06/21/25 18:04 Respiratory MDI BID Comment: Diagnosis: chest pain 06/22/25 07:48 PT Eval & Treat (MD Order) ONCE Reason for Eval:: weakness Diagnosis: chest pain Discharge Exam General Appearance: no apparent distress, alert Neurologic Exam: alert, oriented x 3, cooperative, normal mood/affect, nml cerebellar function, sensation nml, No motor deficits Eye Exam: PERRL, EOMI, eyes nml inspection Ears, Nose, Throat Exam: normal ENT inspection, pharynx normal, moist mucous membranes Neck Exam: normal inspection, non-tender, supple, full range of motion Respiratory Exam: normal breath sounds, lungs clear, No respiratory distress Cardiovascular Exam: regular rate/rhythm, normal heart sounds Gastrointestinal/Abdomen Exam: soft, No tenderness, No mass Male Genitalia Exam: deferred Rectal Exam: deferred Back Exam: normal inspection, normal range of motion, No CVA tenderness, No vertebral tenderness Extremity Exam: normal inspection, normal range of motion Skin Exam: normal color, warm, dry Final Diagnosis/Problem List - Final Discharge Diagnosis/Problem (1) COPD exacerbation Current Visit: Yes Status: Acute Code(s): J44.1 - CHRONIC OBSTRUCTIVE PULMONARY DISEASE W (ACUTE) EXACERBATION (2) Chest pain Current Visit: Yes Status: Acute Code(s): R07.9 - CHEST PAIN, UNSPECIFIED (3) Syncope Current Visit: Yes Status: Acute Code(s): R55 - SYNCOPE AND COLLAPSE (4) Pancytopenia Current Visit: Yes Status: Acute Code(s): D61.818 - OTHER PANCYTOPENIA (5) CAD (coronary artery disease) Current Visit: No Status: Chronic Code(s): I25.10 - ATHSCL HEART DISEASE OF [place] CORONARY ARTERY W/O ANG PCTRS (6) HTN (hypertension) Current Visit: Yes Status: Chronic Code(s): I10 - ESSENTIAL (PRIMARY) HYPERTENSION (7) Dyspnea Current Visit: Yes Status: Acute Code(s): R06.00 - DYSPNEA, UNSPECIFIED (8) Hyperlipidemia Current Visit: Yes Status: Chronic Code(s): E78.5 - HYPERLIPIDEMIA, UNSPECIFIED (9) Insomnia Current Visit: Yes Status: Chronic Code(s): G47.00 - INSOMNIA, UNSPECIFIED (10) Anxiety Current Visit: Yes Status: Chronic Assessment & Plan: (1) COPD exacerbation Current Visit: Yes Status: Acute Assessment & Plan: - Zosyn, duonebs, advair, steroids. - Wean O2 keep sat > 92% - Sputum sample pending - CBC, CMP pending - CXR reviewed - Associated weakness- PT eval and treat 06/22 - Lungs clear - RA 97% - CBC, CMP reviewed - Will continue antibiotic and steroid OP Code(s): J44.1 - CHRONIC OBSTRUCTIVE PULMONARY DISEASE W (ACUTE) EXACERBATION (2) Chest pain Current Visit: Yes Status: Acute Assessment & Plan: - Trend trops x3, trops x3 trended down 0.083, 0.066, 0.062 - CXR negative for acute concern - CBC, CMP reviewed - Nitropaste started in ER - Cardiology consult - EKG - Tele 06/22 - Resolved - Cardiology note reviewed and agree with plan of care - UA negative Code(s): R07.9 - CHEST PAIN, UNSPECIFIED (3) Syncope Current Visit: Yes Status: Acute Assessment & Plan: - 2:2 COPD exacerbation?- see plan - Not eating and drinking well - TSH- WNL - IVF - PT eval Code(s): R55 - SYNCOPE AND COLLAPSE (4) Pancytopenia Current Visit: Yes Status: Acute Assessment & Plan: - Trend labs - Iron panel 06/22 - F/U OP for repeat labs with PCP in 1-2 days and further eval as scheduled- may need referral to hematology for further evaluation. Code(s): D61.818 - OTHER PANCYTOPENIA (5) CAD (coronary artery disease) Current Visit: No Status: Chronic Assessment & Plan: - With hx of CABG and pacemaker - Tele - Continue home meds - Follows cardiology at [facility] Code(s): I25.10 - ATHSCL HEART DISEASE OF [place] CORONARY ARTERY W/O ANG PCTRS (6) HTN (hypertension) Current Visit: Yes Status: Chronic Assessment & Plan: - BP stable - Continue home meds Code(s): I10 - ESSENTIAL (PRIMARY) HYPERTENSION (7) Dyspnea Current Visit: Yes Status: Acute Qualifiers: Dyspnea type: shortness of breath Qualified Code(s): R06.02 - Shortness of breath; R06.00 - Dyspnea, unspecified; R06.01 - Orthopnea Assessment & Plan: - RA 100% - CXR negative for acute concern - Coughing up brown sputum per pt. - Sputum sample pending - Completed OP antibiotics - CBC, CMP reviewed 06/22 - RA 97% - resolved Code(s): R06.00 - DYSPNEA, UNSPECIFIED (8) Hyperlipidemia Current Visit: Yes Status: Chronic Assessment & Plan: - Continue statin Code(s): E78.5 - HYPERLIPIDEMIA, UNSPECIFIED (9) Insomnia Current Visit: Yes Status: Chronic Assessment & Plan: - Continue Restoril Code(s): G47.00 - INSOMNIA, UNSPECIFIED (10) Anxiety Current Visit: Yes Status: Chronic Assessment & Plan: - Continue home med D/C meds: prednisone, doxycycline D/C plan of care time> 40 minutes Code(s): F41.9 - ANXIETY DISORDER, UNSPECIFIED - Discharge Discharge Date: 06/22/25 Disposition: Home, Self-Care Condition: Stable Prescriptions: New Prednisone 20 mg [Deltasone 20 mg] 20 mg PO BID 5 Days #10 tablet Doxycycline Hyclate 100 mg [Vibramycin 100 MG] 100 mg PO BID 5 Days #10 tab Continue Rosuvastatin Calcium [Crestor] 20 mg PO DAILY Nitroglycerin 0.4 mg SL UD PRN PRN Reason: Chest Pain Temazepam [Restoril] 30 mg PO HS ALPRAZolam 0.5 MG [xanAX 0.5 MG] 0.5 mg PO HS Carvedilol [Coreg ] 12.5 mg PO BID Albuterol 2.5 mg/3 ml Neb [Proventil 2.5 mg/3 ml Neb] 2.5 mg IH Q4- 6HPRN PRN PRN Reason: Shortness Of Breath Potassium Chloride 20 Meq [Klor-Con 20 MEQ] 20 meq PO DAILY PRN PRN PRN Reason: w/ water pill Budesonide/Formoterol Fumarate [Symbicort 160-4.5 Mcg Inhaler] 6 gm IH DAILY Lisinopril 20 mg [Zestril 20 MG] 5 mg PO DAILY Amiodarone HCl 200 mg [Cordarone 200 MG] 200 mg PO DAILY Amlodipine Besylate 5 mg [Norvasc 5 mg] 2.5 mg PO DAILY Digoxin 0.125 mg Tablet [Lanoxin 0.125MG TABLET] 0.125 mg PO DAILY Sacubitril/Valsartan [Entresto 49 mg-51 mg Tablet] 1 tab PO BID Instructions: COPD exacerbation - Discharge instructions Additional Instructions: ROLLATOR WAS ORDERED THRU [facility]- THEY WILL DELIVER THIS TO YOUR HOME. YOU CAN CALL THEM AT [phone] IF YOU NEED TO FOLLOWUP Follow up with: ABBEY MARS MD [Primary Care Provider, [facility]] - 06/24/25 2:15 pm Referral Note: CHECK CBC IN OFFICE JEANMARIE MEDEROS MD [NON-STAFF PHY W/O PRIVILEGES, UNKNOWN] - 07/07/25 10:00 am
[2025-06-22] MEDS ORDERED: ENOXAPARIN SODIUM SQ SCH (10:00)
[2025-06-22] MEDS ORDERED: NON-FORMULARY ITEM (Budesonide/Formoterol Fumarate [Symbicort 160-4.5 Mcg Inhaler] 10.2 GM IH SCH (10:00)
--- NOTE | 2025-06-22 10:40 | PCM.CONS ---
History of Present Illness - Date of Consult Date of Encounter: 06/22/25 Consulting System Administrator: WILFRED SUNG MD Requesting Provider: Attending Provider: RITCHIE MANZANO MD Primary Care Provider: PCP: ABBEY MARS Consent was: Given for this tele-med encounter - Consult Narrative Reason for Consult: Troponin elevation HPI: Patient is a 84M with a history of COPD, former coalminer, CHF, presenting for a COPD exacerbation with hypoxia. He received nebulizer treatment, antibiotics, and O2. During the course of his workup troponins were noted to be elevated and downtrending. He denies any chest pain whatsoever. Denies orthopnea or PND. Mostly just dyspnea with wheezing given his COPD. ECG without significant ST segment elevation or depression. cc:: The requesting physician will be sent a copy of the consult. - Past Medical History Past Medical History: Yes Neurological History: No Pertinent History ENT History: Cataracts Cardiac History: Coronary Artery Disease, High Cholesterol, Hypertension, Myocardial Infarction ([place]) Respiratory History: No Pertinent History, COPD Endocrine Medical History: Other Musculoskelatal History: Degenerative Disk Disease, Osteoarthritis GI Medical History: Diverticulitis, Diverticulosis History: No Pertinent History Pyscho-Social History: Anxiety Male Reproductive Disorders: Prostate Cancer Comment: PROSTATE CA WITH PROSTECTOMY, AAA WITH AORTOBIILIAC STENT, SPINAL STENOSIS, BULGING DISCS L3-5 (CT 2021),. HX LEFT SHOULDER ROTATOR CUFF REPAIR AND LEFT KNEE ARTHROSCOPY 18 YEARS AGO TO "CLEAN IT OUT". PACEMAKER - Past Surgical History Past Surgical History: Yes Neuro Surgical History: No Pertinent History Cardiac History: CABG, Cardiac Catheterization, Cardiac Stent, Pacemaker Respiratory Surgery: No Pertinent History GI Surgical History: Hernia Repair Genitourinary Surgical Hx: No Pertinent History Musculskeletal Surgical Hx: Orthopedic Surgery Male Surgical History: Prostate Surgery, Vasectomy Other Surgical History: left shoulder reconstructioncyst from tail bone and neck, cyst removed from neck, colonoscopy Significant Family History: no pertinent family hx - Social History Smoking Status: Never smoker How long have you smoked: 40yrs Exposure to second hand smoke: No Alcohol: None Drug Use: none - Social Determinants of Health Will the patient participate in the screening: Declined to provide Medications & Allergies Home Medications: Home Medication List Nitroglycerin 0.4 mg SL UD PRN 09/17/12 [History Confirmed 06/21/25] Rosuvastatin Calcium [Crestor] 20 mg PO DAILY 09/17/12 [History Confirmed 06/21/25] ALPRAZolam 0.5 MG [xanAX 0.5 MG] 0.5 mg PO HS 01/13/13 [History Confirmed 06/21/25] Temazepam [Restoril] 30 mg PO HS 01/13/13 [History Confirmed 06/21/25] Carvedilol [Coreg ] 12.5 mg PO BID 08/24/15 [History Confirmed 06/21/25] Albuterol 2.5 mg/3 ml Neb [Proventil 2.5 mg/3 ml Neb] 2.5 mg IH Q4-6HPRN PRN 03/20/17 [History Confirmed 06/21/25] Budesonide/Formoterol Fumarate [Symbicort 160-4.5 Mcg Inhaler] 6 gm IH DAILY 03/20/17 [History Confirmed 06/21/25] Lisinopril 20 mg [Zestril 20 MG] 5 mg PO DAILY 03/20/17 [History Confirmed 06/21/25] Potassium Chloride 20 Meq [Klor-Con 20 MEQ] 20 meq PO DAILY PRN PRN 03/20/17 [History Confirmed 06/21/25] Amiodarone HCl 200 mg [Cordarone 200 MG] 200 mg PO DAILY 06/12/21 [History Confirmed 06/21/25] Amlodipine Besylate 5 mg [Norvasc 5 mg] 2.5 mg PO DAILY 06/12/21 [History Confirmed 06/21/25] Digoxin 0.125 mg Tablet [Lanoxin 0.125MG TABLET] 0.125 mg PO DAILY 06/21/25 [History Confirmed 06/21/25] Sacubitril/Valsartan [Entresto 49 mg-51 mg Tablet] 1 tab PO BID 06/21/25 [History Confirmed 06/21/25] Doxycycline Hyclate 100 mg [Vibramycin 100 MG] 100 mg PO BID 5 Days #10 tab 06/22/25 [Rx] Prednisone 20 mg [Deltasone 20 mg] 20 mg PO BID 5 Days #10 tablet 06/22/25 [Rx] Allergies/Adverse Reactions: Allergies Allergy/AdvReac Type Severity Reaction Status Date / Time No Known Drug Allergies Allergy Verified 06/21/25 16:52 Exam - Vitals Vital Signs: Vital Signs - 24 hr Temp Pulse Resp BP BP Pulse Ox 06/22/25 09:42 69 122/60 06/22/25 08:00 97.9 F 74 20 124/74 97 06/22/25 07:32 76 16 97 06/22/25 04:44 97.4 F 80 17 123/62 94 L 06/21/25 23:41 97.4 F 82 16 113/54 97 06/21/25 22:13 115/67 06/21/25 19:48 97.1 F 70 17 101/53 96 06/21/25 17:59 87 16 97 06/21/25 16:58 97.4 F 78 16 123/55 96 06/21/25 16:27 97.4 F 78 16 123/55 96 06/21/25 15:48 100 06/21/25 15:03 69 13 120/61 100 06/21/25 15:01 72 18 110/66 100 06/21/25 14:30 120/70 99 06/21/25 14:00 105/65 100 06/21/25 13:31 75 16 108/72 100 06/21/25 13:29 100 06/21/25 13:20 100 06/21/25 13:10 100 06/21/25 13:02 98 06/21/25 12:30 121/64 98 06/21/25 12:00 76 19 117/64 99 06/21/25 11:30 72 22 110/52 98 06/21/25 11:00 74 20 106/47 99 06/21/25 10:38 75 19 126/62 98 General:: alert and oriented x 4, no acute distress Cardiovascular Exam: regular rate/rhythm, normal heart sounds Respiratory Exam: normal breath sounds SpO2: 97 Results Vital Signs: Vital Signs - 24 hr Temp Pulse Resp BP BP Pulse Ox 06/22/25 09:42 69 122/60 06/22/25 08:00 97.9 F 74 20 124/74 97 06/22/25 07:32 76 16 97 06/22/25 04:44 97.4 F 80 17 123/62 94 L 06/21/25 23:41 97.4 F 82 16 113/54 97 06/21/25 22:13 115/67 06/21/25 19:48 97.1 F 70 17 101/53 96 06/21/25 17:59 87 16 97 06/21/25 16:58 97.4 F 78 16 123/55 96 06/21/25 16:27 97.4 F 78 16 123/55 96 06/21/25 15:48 100 06/21/25 15:03 69 13 120/61 100 06/21/25 15:01 72 18 110/66 100 06/21/25 14:30 120/70 99 06/21/25 14:00 105/65 100 06/21/25 13:31 75 16 108/72 100 06/21/25 13:29 100 06/21/25 13:20 100 06/21/25 13:10 100 06/21/25 13:02 98 06/21/25 12:30 121/64 98 06/21/25 12:00 76 19 117/64 99 06/21/25 11:30 72 22 110/52 98 06/21/25 11:00 74 20 106/47 99 06/21/25 10:38 75 19 126/62 98 Pain Assessment - Last Documented Pain Intensity 0 Intake and Output: Intake & Output 06/19/25 06/20/25 06/21/25 06/22/25 11:59 11:59 11:59 11:59 Intake Total 1454 Output Total 580 Balance 874 Weight 101.2 kg 95.3 kg LAB: I have reviewed the Labs in [facility]. Radiology Exams: Radiology Procedures Category Date Time Status CHEST 1 VIEW (PORTABLE) Stat Exams 06/21/25 11:06 Completed Assessment & Plan (1) Chest pain Current Visit: Yes Status: Acute Assessment & Plan: Resolved. Patient had chest discomfort at home with wheezing. Troponin mildly elevated but downtrending in a flat fashion ECG without ischemia Continue to monitor likely demand ischemia given known CAD and COPD Code(s): R07.9 - CHEST PAIN, UNSPECIFIED (2) CAD (coronary artery disease) Current Visit: No Status: Chronic Assessment & Plan: Continue statin, aspirin Demand ischemia given known CAD Code(s): I25.10 - ATHSCL HEART DISEASE OF [place] CORONARY ARTERY W/O ANG PCTRS (3) COPD (chronic obstructive pulmonary disease) Current Visit: No Status: Chronic - Encounter Encounter: "The entirety of this encounter was performed via Telemedicine using audio and visual "
[2025-06-22 11:23] LABS: Glucose, Urine 500 mg/dL (Negative); Protein,Urine Dip 30 (Negative); RBC 0-2 /HPF (0-5); WBC 0-2 /HPF (0-5)
[2025-06-22 12:04] VITALS: BP 131/62; PULSE 73; O2SAT 98
== END 2025-06-22 12:30 | disposition home or self-care (01) ==
LOC: ED 10:32 → MED SURG 16:25
PROVIDERS: ADMIT Internal Medicine; ATTEND Internal Medicine
DX: J44.1 Chronic obstructive pulmonary disease with (acute) exacerbation (principal); R07.9 Chest pain, unspecified; I25.10 Atherosclerotic heart disease of native coronary artery without angina pectoris; I10 Essential (primary) hypertension; E78.5 Hyperlipidemia, unspecified; I25.2 Old myocardial infarction; F41.9 Anxiety disorder, unspecified; Z85.46 Personal history of malignant neoplasm of prostate; R55 Syncope and collapse; D61.818 Other pancytopenia; R06.00 Dyspnea, unspecified; G47.00 Insomnia, unspecified; Z79.899 Other long term (current) drug therapy
CPT/HCPCS: 36415; 71045; 80053; 81001; 82150; 82550; 82607; 82728; 82746; 83540; 83550; 83690; 83880; 84443; 84484; 85025; 85027; 93268; 94640; 94760; 97161; 99285; G0378; Q3014